=== PATIENT | female | born 1995 | race Caucasian/White ===

== ENCOUNTER 2023-05-08 15:48 | Outpatient (AMB) | payer OTHER, SELFPAY ==
[2023-05-08 15:54] VITALS: BP 110/58; PULSE 70; O2SAT 100; BMI 28.5
--- NOTE | 2023-05-08 15:54 | A.OFFVIS_ITS ---
Intake Vital Signs 05/08/23 15:54 Height 5 ft Weight 146 lb BMI 28.5 BP 110/58 L Blood Pressure Location Lt brachial Position Sitting Pulse 70 Pulse Source Pulse Oximeter Pulse Oximetry (%) 100 Oxygen Delivery Method Room Air Intake Visit Reasons: Asthma Geoscience Laboratory Technician Required: No Design Engineer Marine Equipment: Design Engineer Marine Equipment offered & declined Accompanied by: Self / Same As Patient Allergies No Known Allergies Allergy (Verified 05/08/23 15:57) Medication List - Last Reconciled 05/08/23 by Kathie Hendricks LPN fluticasone propionate 100 mcg/actuation (Flovent Diskus) 1 inh inhalation BID montelukast 10 mg PO DAILY HPI Asthma HPI Details Wilson is a very pleasant 27 year old female, never smoker, with underlying asthma. She was referred by her PCP for pulmonary evaluation. She reports symptoms are moderately controlled on Flovent, although does not use consistently. She infrequently uses albuterol. Her main symptom is a cough although does report intermittent dyspnea on exertion and feeling as though she can not take a deep breath which responds well to albuterol. She reports having childhood asthma and a family history of asthma.She denies any hospitalizations or intubations. She reports allergic symptoms associated with seasonal changes, denies any use of antihistamines. Denies any prior allergy testing. 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 [facility] Social History (Updated 05/08/23 @ 15:59 by Kathie Hendricks LPN) Patient Tobacco Use Status: Never used Tobacco Smoked in Last 30 Days: No Review of Systems Const Denies chills, Denies excessive sweating, Denies fever(s), Denies headache(s) and Denies night sweats Eyes Denies dry eyes, Denies irritation and Denies itchy eyes ENT Reports Normal hearing present, Denies headache(s), Denies nasal congestion, Denies post nasal drip and Denies sore throat Card Denies chest pain, Denies chest pain at rest, Denies chest pain with activity, Denies claudication, Denies leg edema, Denies dyspnea, Denies orthopnea and Denies paroxysmal nocturnal dyspnea Resp Denies chest congestion, Denies excessive phlegm production, Denies pain on insp iration, Denies pain with cough, Denies dyspnea, Denies stridor and Denies wheezing Musc Denies myalgias Neuro Reports Normal hearing present and Denies headache(s) Endo Denies excessive sweating Marc/Lymph Denies lymphadenopathy Aller/Immun Denies itchy eyes, Denies seasonal rhinorrhea and Denies wheezing Physical Exam Vital Signs: Last Vital Signs Pulse 70 05/08/23 15:54 BP 110/58 L 05/08/23 15:54 Pulse Ox 100 05/08/23 15:54 Oxygen Delivery Method Room Air 05/08/23 15:54 BMI result Body Mass Index 28.5 Const General: cooperative, healthy appearing, comfortable, no acute distress, well d eveloped and alert Orientation/consciousness: patient oriented x3 Limitations: no limitations HEENT Head: Yes normal to inspection, Yes normocephalic and Yes atraumatic Ears: hearing grossly normal bilaterally and external ears normal Eyes General: appearance normal, both eyes and all related structures Eyelids: Yes eyelids normal Sclerae: sclerae normal EOM: EOMs intact bilaterally Neck Neck: Yes normal visual inspection and Yes no lymphadenopathy Lymphatic: no lymphadenopathy noted Chest Chest palpation & inspection: normal inspection of the chest Resp Effort & Inspection: normal respiratory effort, able to speak in complete sentences, no audible wheezes, no cough, no stridor, not tachypneic, no tripod positioning and no use of accessory muscles Auscultation: clear to auscultation bilaterally Cardio Jugular venous distension: no JVD Rate: regular rate Rhythm: regular rhythm Skin Other: warm, dry General skin exam: no rashes or lesions noted Neuro General: patient oriented x3 Cranial nerves: Yes Normal hearing present Cognition (Neuro): normal cognition Gait exam (Neuro): Normal gait present Extrem General: Yes normal to inspection, Yes capillary refill normal, Yes no clubbing, cyanosis or edema and Yes no pedal edema Psych Appearance: grossly normal and well kempt Speech and movement: Normal speech and movement present and Clear speech present Affect: normal affect Attitude: cooperative Thought process: Normal thought process present Thought content: Normal thought content present Insight: Good insight present (Psych) Judgement: Good judgement present (Psych) Assessment & Plan Assessment & Plan (1) Asthma: Code(s): J45.909 - Unspecified asthma, uncomplicated (2) Environmental allergies: Code(s): Z91.09 - Other allergy status, other than to drugs and biological substances Plan Symptoms consistent with asthma and environmental allergies, will thoroughly assess with PFT and RAST testing. Encouraged patient to use Flovent regularly. Reviewed oral hygeine. Will follow up to review results and assess response to Flovent. All questions were answered and patient is in agreement of plan. Orders: Orders Rast Allergen Today Z. - Other allergy status, other than to drugs and biological substances Complete Blood Count Auto Diff Today Z. - Other allergy status, other than to drugs and biological substances Immunoglobulin E Today J45.909 - Unspecified asthma, uncomplicated, Z. - Other allergy status, other than to drugs and biological substances PFT pulmonary function test Today J45.909 - Unspecified asthma, uncomplicated Coding Level of Care Code New Pt Level 3 (45837) Diagnoses Asthma J45.909 Environmental allergies Z.
== END 2023-05-08 16:37 | disposition home or self-care (01) ==
LOC: HO.HPSW 15:48
PROVIDERS: PCP Physician Assistant Medical; Referring Provider Physician Assistant Medical; Visit Provider Nurse Practitioner Family
DX: J45.909 Unspecified asthma, uncomplicated (principal); Z91.09 Other allergy status, other than to drugs and biological substances
CPT/HCPCS: 99203

== ENCOUNTER 2023-06-14 10:38 | Outpatient (REF) | payer OTHER, SELFPAY ==
[2023-06-14 11:58] LABS: MANUAL DIFF FLAG NO
--- NOTE | 2023-06-14 12:18 | PFT_ITS ---
FLOWS: 1. FEV1 97% of predicted at 3.42 L. 2. FVC 99% of predicted at 3.74 L. 3. FEV1 to FVC ratio of 0.91. 4. No bronchodilator response. LUNG VOLUMES: 1. Total lung capacity 106% of predicted at 4.66 L. 2. Residual volume 88% of predicted at 0.86 L. 3. Slow vital capacity 104% of predicted at 3.80 L. 4. Expiratory reserve volume 58% of predicted at 0.62 L. 5. Diffusion capacity is normal. IMPRESSION: No obstructive or restrictive ventilatory defect. No bronchodilator response. Essentially normal pulmonary function test. MD MARYCARMEN Jerome/MODL / [id number]
[2023-06-14 12:48] LABS: Basophils Percent Auto 0.8 % (0-2); Eosinophils Absolute Auto 0.1 X10*3/uL (0.0-0.4); Eosinophils Percent Auto 2.5 % (0-4); Hematocrit 44.9 % (37.0-47.0); Hemoglobin 14.2 g/dl (12.0-16.0); Imm Gran Abs Auto 0.01 X10*3/uL (0.00-0.03); Imm Gran Pct Auto 0.3 % (0.0-0.4); Lymphocytes Absolute Auto 1.7 X10*3/uL (1.2-4.9); Lymphocytes Percent Auto 43.2 % (20-40); Mean Corpuscular HGB Conc 31.6 g/dl (31.0-35.0); Mean Corpuscular Hemoglobin 26.2 pg (27.0-33.0); Mean Platelet Volume 9.7 fL (9.4-12.3); Monocytes Absolute Auto 0.4 X10*3/uL (0.1-1.2); Monocytes Percent Auto 9.5 % (2-11); Neutrophils Absolute Auto 1.7 x10*3/uL (2.0-8.3); Neutrophils Percent Auto 43.7 % (45-73); Platelet Count 305 X10*3/uL (160-400); Red Blood Count 5.41 X10*6/uL (4.20-5.50); Red Cell Distribution Width 13.2 % (11.0-16.0)
[2023-06-18 20:54] LABS: Immunoglobulin E 101 kU/L (<OR=114)
== END 2023-06-14 10:39 | disposition home or self-care (01) ==
LOC: HO.RESP 10:38
PROVIDERS: PCP Physician Assistant Medical; Visit Provider Nurse Practitioner Family
DX: J45.909 Unspecified asthma, uncomplicated (principal); Z91.09 Other allergy status, other than to drugs and biological substances
CPT/HCPCS: 36415; 82785; 85025; 86003; 94010; 94727; 94729

== ENCOUNTER → 2023-06-14 12:18 | Outpatient (BNV) | payer OTHER, SELFPAY | PROVIDERS: PCP Physician Assistant Medical; Visit Provider Internal Medicine Pulmonary Disease | DX: J45.909 Unspecified asthma, uncomplicated (principal) | CPT/HCPCS: 94060; 94727; 94729 ==

== ENCOUNTER 2023-06-24 13:43 | Outpatient (AMB) | payer OTHER, SELFPAY ==
[2023-06-24 13:46] VITALS: BP 114/62; PULSE 69; O2SAT 100; BMI 29.5
--- NOTE | 2023-06-24 13:46 | MHC.OFFVIS ---
Intake Vital Signs 06/24/23 13:46 Height 5 ft Weight 151 lb BMI 29.5 BP 114/62 Blood Pressure Location Lt brachial Position Sitting Pulse 69 Pulse Source Pulse Oximeter Pulse Oximetry (%) 100 Oxygen Delivery Method Room Air Intake Visit Reasons: follow up after pft Personnel Manager Required: No Motor Vehicle Operator Road Supervisor: Motor Vehicle Operator Road Supervisor offered & declined Accompanied by: Self / Same As Patient Allergies No Known Allergies Allergy (Verified 06/24/23 13:53) Medication List - Last Reconciled 06/24/23 by Kathie Hendricks LPN fluticasone propionate 100 mcg/actuation (Flovent Diskus) 1 inh inhalation BID HPI follow up after pft HPI Details Wilson is a very pleasant 27 year old female, never smoker, with underlying asthma. At baseline she has suboptimal control on Flovent. Today she presents to review PFT and RAST results. Of note, she reports discontinuing singulair, prescribed by PCP, due to adverse effects. 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 [facility] Social History (Updated 05/08/23 @ 15:59 by Kathie Hendricks LPN) Patient Tobacco Use Status: Never used Tobacco Review of Systems Const Denies chills, Denies excessive sweating, Denies fever(s), Denies headache(s) and Denies night sweats Eyes Denies dry eyes, Denies irritation and Denies itchy eyes ENT Reports Normal hearing present, Denies headache(s), Denies nasal congestion, Denies post nasal drip and Denies sore throat Card Denies chest pain, Denies chest pain at rest, Denies chest pain with activity, Denies claudication, Denies leg edema, Denies dyspnea, Denies orthopnea and Denies paroxysmal nocturnal dyspnea Resp Denies chest congestion, Denies excessive phlegm production, Denies pain on inspiration, Denies pain with cough, Denies dyspnea, Denies stridor and Denies wheezing Musc Denies myalgias Neuro Reports Normal hearing present and Denies headache(s) Endo Denies excessive sweating Marc/Lymph Denies lymphadenopathy Aller/Immun Denies itchy eyes, Denies seasonal rhinorrhea and Denies wheezing Physical Exam Vital Signs: Last Vital Signs Pulse 69 06/24/23 13:46 BP 114/62 06/24/23 13:46 Pulse Ox 100 06/24/23 13:46 Oxygen Delivery Method Room Air 06/24/23 13:46 BMI result Body Mass Index 29.5 Const General: cooperative, healthy appearing, comfortable, no acute distress, well developed and alert Orientation/consciousness: patient oriented x3 Limitations: no limitations HEENT Head: Yes normal to inspection, Yes normocephalic and Yes atraumatic Ears: hearing grossly normal bilaterally and external ears normal Eyes General: appearance normal, both eyes and all related structures Eyelids: Yes eyelids normal Sclerae: sclerae normal EOM: EOMs intact bilaterally Neck Neck: Yes normal visual inspection and Yes no lymphadenopathy Lymphatic: no lymphadenopathy noted Chest Chest palpation & inspection: normal inspection of the chest Resp Effort & Inspection: normal respiratory effort, able to speak in complete sentences, no audible wheezes, no cough, no stridor, not tachypneic, no tripod positioning and no use of accessory muscles Auscultation: clear to auscultation bilaterally Cardio Jugular venous distension: no JVD Rate: regular rate Rhythm: regular rhythm Skin Other: warm, dry General skin exam: no rashes or lesions noted Neuro General: patient oriented x3 Cranial nerves: Yes Normal hearing present Cognition (Neuro): normal cognition Gait exam (Neuro): Normal gait present Extrem General: Yes normal to inspection, Yes capillary refill normal, Yes no clubbing, cyanosis or edema and Yes no pedal edema Psych Appearance: grossly normal and well kempt Speech and movement: Normal speech and movement present and Clear speech present Affect: normal affect Attitude: cooperative Thought process: Normal thought process present Thought content: Normal thought content present Insight: Good insight present (Psych) Judgement: Good judgement present (Psych) Assessment & Plan Assessment & Plan (1) Asthma: Code(s): J45.909 - Unspecified asthma, uncomplicated (2) Environmental allergies: Code(s): Z91.09 - Other allergy status, other than to drugs and biological substances Plan Reviewed PFT which revealed normal spirometry, lung volumes and DLCO, with minimal response to bronchodilators. Will trial Breo in place of Flovent and send in albuterol PRN chest tightness/wheezing. Discussed importance of oral hygiene. Patient aware if medication is not approved/available to contact the office. Reviewed RAST results which revealed allergies to mouse, cat and dog. Patient does have one cat and three dogs. Reviewed ways to minimize allergen exposure and to use an antihistamine. Will follow up in 3-6 months or sooner if needed. All questions were answered and patient is in agreement of plan. Medications: New fluticasone furoate-vilanterol 100-25 mcg/dose (Breo Ellipta) 1 inh inhalation DAILY 60 ea 3RF albuterol sulfate 90 mcg/actuation 2 puffs inhalation Q4-6H PRN 1 ea 3RF shortness of breath or wheezing Coding Level of Care Code Est Pt Level 3 (94019) Diagnoses Asthma J45.909 Environmental allergies Z91.09
== END 2023-06-24 14:16 | disposition home or self-care (01) ==
LOC: HO.HPSW 13:43
PROVIDERS: PCP Physician Assistant Medical; Visit Provider Nurse Practitioner Family
DX: J45.909 Unspecified asthma, uncomplicated (principal); Z91.09 Other allergy status, other than to drugs and biological substances
CPT/HCPCS: 99213

== ENCOUNTER → 2023-06-24 13:43 | Outpatient (BNVA) | payer OTHER, SELFPAY | PROVIDERS: PCP Physician Assistant Medical; Visit Provider Nurse Practitioner Family ==

== ENCOUNTER 2023-12-11 13:48 | Outpatient (AMB) | payer OTHER, SELFPAY ==
--- NOTE | 2023-12-11 13:53 | MHC.OFFVIS ---
Intake Vital Signs 12/11/23 14:01 Height 5 ft Weight 154 lb BMI 30.1 BP 132/64 Blood Pressure Location Lt brachial Position Sitting Pulse 72 Pulse Oximetry (%) 98 Oxygen Delivery Method Room Air Intake Visit Reasons: asthma : 6 month f/u Grades 9 Thru 12 Visiting Teacher Required: No Labor Service Representative: Labor Service Representative offered & declined Accompanied by: Self / Same As Patient Allergies No Known Allergies Allergy (Verified 12/11/23 14:06) Medication List - Last Reconciled 12/11/23 by Kathie Hendricks LPN albuterol sulfate 90 mcg/actuation 2 puffs inhalation Q4-6H PRN fluticasone furoate-vilanterol 100-25 mcg/dose (Breo Ellipta) 1 inh inhalation DAILY HPI asthma : 6 month f/u HPI Details Wilson is a very pleasant 28 year old female, never smoker, with underlying asthma. At the last visit she was switched from Flovent to Breo and reports good control of symptoms. She reports use of albuterol very infrequently. She denies any recent visits to urgent care/PCP for prednisone or antibiotics. She denies any wheezing, chest tightness, dry cough or dyspnea. Today she presents for a routine follow-up. [facility] Social History (Updated 12/11/23 @ 14:06 by Kathie Hendricks LPN) Patient Tobacco Use Status: Never used Tobacco Review of Systems Const Denies chills, Denies excessive sweating, Denies fever(s), Denies headache(s) and Denies night sweats Eyes Denies dry eyes, Denies irritation and Denies itchy eyes ENT Reports Normal hearing present, Denies headache(s), Denies nasal congestion, Denies nasal discharge, Denies post nasal drip and Denies sore throat Card Denies chest pain, Denies chest pain at rest, Denies chest pain with activity, Denies claudication, Denies leg edema, Denies dyspnea, Denies dyspnea on exertion, Denies orthopnea and Denies paroxysmal nocturnal dyspnea Resp Denies chest congestion, Denies cough, Denies excessive phlegm production, Denies pain on inspiration, Denies pain with cough, Denies dyspnea, Denies dyspnea on exertion, Denies stridor and Denies wheezing Musc Denies myalgias Neuro Reports Normal hearing present and Denies headache(s) Endo Denies excessive sweating Marc/Lymph Denies lymphadenopathy Aller/Immun Denies itchy eyes, Denies seasonal rhinorrhea and Denies wheezing Physical Exam Vital Signs: Last Vital Signs Pulse 72 12/11/23 14:01 BP 132/64 12/11/23 14:01 Pulse Ox 98 12/11/23 14:01 Oxygen Delivery Method Room Air 12/11/23 14:01 BMI result Body Mass Index 30.1 Const General: cooperative, healthy appearing, comfortable, no acute distress, well developed and alert Orientation/consciousness: patient oriented x3 Limitations: no limitations HEENT Head: Yes normal to inspection, Yes normocephalic and Yes atraumatic Ears: hearing grossly normal bilaterally and external ears normal Eyes General: appearance normal, both eyes and all related structures Eyelids: Yes eyelids normal Sclerae: sclerae normal EOM: EOMs intact bilaterally Neck Neck: Yes normal visual inspection and Yes no lymphadenopathy Lymphatic: no lymphadenopathy noted Chest Chest palpation & inspection: normal inspection of the chest Resp Effort & Inspection: normal respiratory effort, able to speak in complete sentences, no audible wheezes, no cough, no stridor, not tachypneic, no tripod positioning and no use of accessory muscles Auscultation: clear to auscultation bilaterally Cardio Jugular venous distension: no JVD Rate: regular rate Rhythm: regular rhythm Skin Other: warm, dry General skin exam: no rashes or lesions noted Neuro General: patient oriented x3 Cranial nerves: Yes Normal hearing present Cognition (Neuro): normal cognition Gait exam (Neuro): Normal gait present Extrem General: Yes normal to inspection, Yes capillary refill normal, Yes no clubbing, cyanosis or edema and Yes no pedal edema Psych Appearance: grossly normal and well kempt Speech and movement: Normal speech and movement present and Clear speech present Affect: normal affect Attitude: cooperative Thought process: Normal thought process present Thought content: Normal thought content present Insight: Good insight present (Psych) Judgement: Good judgement present (Psych) Assessment & Plan Assessment & Plan (1) Asthma: Code(s): J45.909 - Unspecified asthma, uncomplicated (2) Environmental allergies: Code(s): Z91.09 - Other allergy status, other than to drugs and biological substances Plan At this time patient reports good control of respiratory symptoms on current regimen. Advised to continue. She is aware to call the office if symptoms change. All questions were answered patient agreement of plan. Will follow-up in 6 months or sooner if needed. Coding Level of Care Code Est Pt Level 3 (42863) Diagnoses Asthma J45.909 Environmental allergies Z91.09
[2023-12-11 14:01] VITALS: BP 132/64; PULSE 72; O2SAT 98; BMI 30.1
== END 2023-12-11 14:20 | disposition home or self-care (01) ==
PROVIDERS: PCP Physician Assistant Medical; Visit Provider Nurse Practitioner Family
DX: J45.909 Unspecified asthma, uncomplicated (principal); Z91.09 Other allergy status, other than to drugs and biological substances
CPT/HCPCS: 99213

== ENCOUNTER → 2023-12-11 13:48 | Outpatient (BNVA) | payer OTHER, SELFPAY | PROVIDERS: PCP Physician Assistant Medical; Visit Provider Nurse Practitioner Family ==

== ENCOUNTER 2024-08-12 15:02 | Outpatient (AMB) | payer OTHER, SELFPAY ==
--- NOTE | 2024-08-12 15:06 | MHC.OFFVIS ---
Vital Signs 08/12/24 15:07 Height 5 ft Weight 153 lb 6 oz BMI 30.0 BP 94/58 L Blood Pressure Location Rt brachial Position Sitting Pulse 69 Pulse Source Pulse Oximeter Pulse Oximetry (%) 98 Oxygen Delivery Method Room Air Intake Visit Reasons: Asthma Allergies No Known Allergies Allergy (Verified 12/11/23 14:06) HPI HPI Asthma: Details: Wilson is a very pleasant 29 year old female, never smoker, with underlying asthma. She was initially referred for suboptimal control on Flovent and switch to Breo however reports inconsistent use. She reports intermittent and respiratory symptoms relatively controlled with albuterol p.r.n.. Since the last visit she did note having worsening respiratory symptoms after upper respiratory infection in June using albuterol quite frequently and received a course of azithromycin. Since then symptoms have been more controlled, however continues with dry cough. [facility] Social History (Reviewed 08/12/24 @ 15:09 by Angeles Frias [facility] [address]) Patient Tobacco Use Status: Never used Tobacco Review of Systems Const Denies chills, Denies excessive sweating, Denies fever(s), Denies headache(s) and Denies night sweats Eyes Denies dry eyes, Denies irritation and Denies itchy eyes ENT Reports Normal hearing present and Denies headache(s) Card Denies chest pain, Denies chest pain at rest, Denies chest pain with activity, Denies claudication, Denies leg edema, Denies dyspnea, Denies dyspnea on exertion, Denies orthopnea and Denies paroxysmal nocturnal dyspnea Resp Denies chest congestion, Reports cough, Denies excessive phlegm production, Denies pain on inspiration, Denies pain with cough, Denies dyspnea, Denies dyspnea on exertion, Denies stridor and Denies wheezing Musc Denies myalgias Neuro Reports Normal hearing present and Denies headache(s) Endo Denies excessive sweating Marc/Lymph Denies lymphadenopathy Aller/Immun Denies itchy eyes, Denies seasonal rhinorrhea and Denies wheezing Physical Exam Vital Signs: Last Vital Signs Pulse 69 08/12/24 15:07 BP 94/58 L 08/12/24 15:07 Pulse Ox 98 08/12/24 15:07 Oxygen Delivery Method Room Air 08/12/24 15:07 BMI result Body Mass Index 30.0 Const General: cooperative, healthy appearing, comfortable, no acute distress, well developed and alert Orientation/consciousness: patient oriented x3 Limitations: no limitations HEENT Head: Yes normal to inspection, Yes normocephalic and Yes atraumatic Ears: hearing grossly normal bilaterally and external ears normal Eyes General: appearance normal, both eyes and all related structures Eyelids: Yes eyelids normal Sclerae: sclerae normal EOM: EOMs intact bilaterally Neck Neck: Yes normal visual inspection and Yes no lymphadenopathy Lymphatic: no lymphadenopathy noted Chest Chest palpation & inspection: normal inspection of the chest Resp Effort & Inspection: normal respiratory effort, able to speak in complete sentences, no audible wheezes, no cough, no stridor, not tachypneic, no tripod positioning and no use of accessory muscles Auscultation: clear to auscultation bilaterally Cardio Jugular venous distension: no JVD Rate: regular rate Rhythm: regular rhythm Skin Other: warm, dry General skin exam: no rashes or lesions noted Neuro General: patient oriented x3 Cranial nerves: Yes Normal hearing present Cognition (Neuro): normal cognition Gait exam (Neuro): Normal gait present Extrem General: Yes normal to inspection, Yes capillary refill normal, Yes no clubbing, cyanosis or edema and Yes no pedal edema Psych Appearance: grossly normal and well kempt Speech and movement: Normal speech and movement present and Clear speech present Affect: normal affect Attitude: cooperative Thought process: Normal thought process present Thought content: Normal thought content present Insight: Good insight present (Psych) Judgement: Good judgement present (Psych) Assessment & Plan Assessment & Plan (1) Asthma: Code(s): J45.909 - Unspecified asthma, uncomplicated Category: Medical (2) Environmental allergies: Code(s): Z91.09 - Other allergy status, other than to drugs and biological substances Category: Medical Plan Encouraged patient to use Breo consistently and albuterol p.r.n.. All questions were answered and patient is in agreement of plan. Will follow-up in 6 months or sooner. Medications: Refilled fluticasone furoate-vilanterol 100-25 mcg/dose (Breo Ellipta) 1 inh inhalation DAILY 60 ea 6RF albuterol sulfate 90 mcg/actuation 2 puffs inhalation Q4-6H PRN 1 ea 3RF shortness of breath or wheezing Coding Level of Care Code Est Pt Level 3 (52224) Diagnoses Asthma J45.909 Environmental allergies Z91.09
[2024-08-12 15:07] VITALS: BP 94/58; PULSE 69; O2SAT 98
--- OUTSIDE RECORDS SUMMARY | 2024-08-13 02:58 | XMS_ITS | Data Portability ---
Author Organization [facility], Main Office Address [address] [place] [address] [place] [id number] Care Team Providers Care Farmworker Animal Name Role Phone MILAGROS CAO Primary Care Provider Assessment No assessment recorded. Plan of Treatment Reminders Order Date Submit Date Provider Last Modified By Organization Details Last Modified Time Details Appointments PE EST 2023 02:00P Sherrie Cao PA-C Not available Not available Not available Lab TSH, serum or plasma 2022 023 [facility], [address], [address], [place], [address], 05/21/2023 11:26:14 lipid panel, serum 2022 023 [facility], [address], [address], [place], [address], 05/21/2023 11:24:58 CMP, serum or plasma 2022 023 [facility], [address], [address], [place], [address], 05/21/2023 11:24:58 rapid flu (A+B) 2023 024 ania In-Office Order, Internal Use Only DO Not Attach Compendium DO Not Attach Compendium, Do Not Delete/merge, [id number] 06/13/2024 10:58:51 Referral pulmonol ogist referral - H/o asthma, pt. is going to the [employer] and needs exercise pulmonar y function testing done by pulmonol ogist 2022 023 [facility], [place], [address], 05/08/2023 19:54:22 gynecolo gist referral 2022 023 ale Not available 05/21/2023 12:21:01 Procedures None recorded . Surgeries None recorded . Imaging XR, cervical spine [address] [facility], [address] [place] [address], [id number], 09/09/2023 15:39:06 XR, thoracic spine, 2 view [address] [facility], [address] [place] [address], [id number], 09/09/2023 15:39:07 Medication Orders zolmitri ptan 5 mg disinteg rating tablet 2022 023 [facility] #1157, [address] [place], [address], 04/02/2023 14:26:28 monteluk ast 10 mg tablet 2022 023 [place] [address] [facility], [address] [place], [address], 07/06/2023 12:15:27 Flovent Diskus 100 mcg/actu ation powder for inhalati on 2022 023 [email or web address] [facility]acy #1157, [address] [place], [address], 06/12/2023 08:07:59 albutero l sulfate HFA 90 mcg/actu ation aerosol inhaler 2022 023 [facility] #1157, [address] [place], [address], 05/21/2023 11:27:49 monteluk ast 10 mg tablet 2022 023 [facility] #1157, [address] [place], [address], 07/06/2023 12:15:30 zolmitri ptan 5 mg disinteg rating tablet 2022 023 [facility] #1157, [address] [place], [address], 05/21/2023 11:27:49 meloxica m 15 mg tablet 2022 024 [facility] #1157, [address] [place], [address], 06/13/2024 10:20:02 cycloben zaprine 5 mg tablet 2022 024 [facility] #1157, [address] [place], [address], 06/13/2024 10:19:35 doxycycl ine hyclate 100 mg tablet 2022 024 [facility] #1157, [address] [place], [address], 06/13/2024 10:19:42 azithrom ycin 250 mg tablet 2023 024 [email or web address] [address] [place], [address], 06/13/2024 10:58:49 Patient TargetsNo targets recorded. Patient Instructions Encounter Date Encounter Id Patient Instructions Last Modified By Organization Details Last Modified Time 05/21/2023 [id number] heart-healthy diet: care instructions Not available 05/21/2023 11:24:55 diet and exercise for metabolic syndrome: care instructions Not available 05/21/2023 11:24:55 heart-healthy diet: care instructions Not available 05/21/2023 11:40:18 diet and exercise for metabolic syndrome: care instructions Not available 05/21/2023 11:40:18 controlling your asthma: care instructions Not available 05/21/2023 11:40:56 07/06/2023 [id number] neck: exercises Not availabl e 07/06/2023 12:26:24 healthy upper back: exercises Not available 07/06/2023 12:26:25 06/13/2024 [id number] pinkeye: care instructions awychowski Not available 06/13/2024 10:58:49 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 is going to the [employer] and needs exercise pulmonary function testing done by fibrous wallboard inspector Referring Physician: Milagros Cao, Internal Medicine, Encounter Date: 04/02/2023 Reimbursement Coordinator 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 Referring Physician: Milagros Cao, Internal Medicine, Encounter Date: 05/21/2023 Results Created Date Observation Date Name Description Value Unit Range Abnormal Flag Note LastModifiedBy Organization Detail LastModifiedTime 06/13/2006/13/2024 rapid flu (A+B) Flu A negati ve Not Available In-Office Order Internal Use Only DO Not Attach Compendium DO Not Attach Compendium, Do Not Delete/merge, [id number] 06/13/2024 10:33:19 06/13/2006/13/2024 rapid flu (A+B) Flu B negati ve Not Available In-Office Order Internal Use Only DO Not Attach Compendium DO Not Attach Compendium, Do Not Delete/merge, [id number] 06/13/2024 10:33:19 Result Notes None recorded. Problems Name Problem SNOMED Code Status Onset Date Resolution Date Notes Provider Name and Address Organization Details Recorded Time Acne 01356454 Active 2019 Not Available [facility] 3 10:52:13 Gastroeso phageal reflux disease 425579195 Completed 201907/26/2020 Milagros Cao PA-C [address] [facility] [address], [place], [address] , [facility] 0 11:35:23 Mild intermitt ent asthma 078779785 Active [address] [facility] 3 10:52:13 Migraine with aura 2237487 Active [address] [facility] 3 10:52:13 Family history of Thyroid disorder 596784473 Active [address] [facility] 3 10:52:13 Menorrhag ia 874898843 Active [address] [facility] 3 10:52:13 Anxiety 59974097 Active 2021 Not Available [facility] 3 10:52:13 Impacted cerumen of bilateral ears 11722132902 [address] Active [address] [facility] 3 10:52:13 Hyperlipi demia 53085449 Active [address] [facility] 3 10:52:13 Generaliz ed anxiety disorder 71271619 Active 2022 Milagros Cao PA-C [address] [facility] [address], [place], [address] , [facility] 3 11:23:22 Problem Notes None recorded. Procedures Surgical History Date Name Laterality Status Provider Name and Address Organization Details Recorded Time 02/08/2021 Other completed Stacy Prieto MA [facility] 01/12/2022 11:36:58 Imaging Results None recorded. Procedure Notes None recorded. Medical Equipment None Reported. Allergies No known drug allergies Medications Name Sig Start Date Stop Date Status Note LastModified by Organization Details LastModified Time azithromyci n 250 mg tablet TAKE 2 TABLETS BY MOUTH TODAY, THEN TAKE 1 TABLET DAILY FOR 4 DAYS DIRECTED active Not Available Not Available No t Available meloxicam 15 mg tablet TAKE 1 TABLET BY MOUTH EVERY DAY FOR 30 DAYS 06/13 completed Not Available Not Available Not Available zolmitripta n 5 mg disintegrat ing tablet Take 1 tablet as needed by oral route for 30 days. active Not Available Not Available No t Available triamcinolo ne acetonide 0.1 % topical cream APPLY A THIN LAYER TOPICALLY TO THE AFFECTED AREA TWICE A DAY 01/12 completed Not Available Not Available Not Available montelukast 10 mg tablet Take 1 tablet every day by oral route for 30 days. active Not Available Not Available No t Available albuterol sulfate HFA 90 mcg/actuati on aerosol inhaler Inhale 2 puffs every 4 hours by inhalatio n route for 30 days. active Not Available Not Available No t Available doxycycline hyclate 100 mg tablet TAKE 1 TABLET BY MOUTH TWICE A DAY FOR 10 DAYS 06/13 completed Not Available Not Available Not Available amoxicillin 875 mg-potassiu m clavulanate 125 mg tablet 07/25 completed Not Available Not Available Not Available cyclobenzap rine 5 mg tablet TAKE 1 TABLET BY MOUTH EVERY DAY NEEDED FOR 10 DAYS 06/13 completed Not Available Not Available Not Available Flovent Diskus 100 mcg/actuati on powder for inhalation INHALE 1 PUFF INTO THE LUNGS TWICE A DAY active Not Available Not Available No t Available Citlali (28) 3 mg-0.02 mg tablet TAKE ONE TABLET BY MOUTH EVERY MORNING 04/02 completed Not Available Not Available Not Available Asmanex HFA 200 mcg/actuati on aerosol inhaler INHALE 2 PUFFS BY MOUTH EVERY DAY 07/25 completed Not Available Not Available Not Available Asmanex HFA 100 mcg/actuati on aerosol inhaler INHALE 2 PUFFS TWICE A DAY 01/12 completed Not Available Not Available Not Available Vitals Date Recorded Body height Body mass index (BMI) Body weight Heart rate Oxygen saturation Oxygen saturation in Arterial blood by Pulse oximetry Body temperature Systolic blood pressure Diastolic blood pressure Provider Name and Address Organization Details Last Updated DateTime 3 152.4 cm 27.9 kg/m2 57149.7 1 g 80 /min 98 % 98 % 98.1 [degF] 120 mm[Hg] 78 mm[Hg] Hima Gongora MA [facility] 3 13:51:33 Date Recorded Body height Body mass index (BMI) Body weight Heart rate Oxygen saturation Oxygen saturation in Arterial blood by Pulse oximetry Body temperature Systolic blood pressure Diastolic blood pressure Provider Name and Address Organization Details Last Updated DateTime 3 152.4 cm 28.7 kg/m2 17074.0 8 g 67 /min 99 % 99 % 98.2 [degF] 114 mm[Hg] 69 mm[Hg] Jennifer Neumann [facility] 3 11:11:27 Date Recorded Body height Body mass index (BMI) Body weight Oxygen saturation Oxygen saturation in Arterial blood by Pulse oximetry Heart rate Body temperature Systolic blood pressure Diastolic blood pressure Provider Name and Address Organization Details Last Updated DateTime 3 152.4 cm 29.7 kg/m2 93326.4 4 g 100 % 100 % 76 /min 98.2 [degF] 126 mm[Hg] 72 mm[Hg] Kerline Montes De Oca MA [facility] 3 12:14:53 Date Recorded Body height Body mass index (BMI) Body weight Heart rate Oxygen saturation Oxygen saturation in Arterial blood by Pulse oximetry Body temperature Systolic blood pressure Diastolic blood pressure Provider Name and Address Organization Details Last Updated DateTime 3 152.4 cm 29.5 kg/m2 94216.4 5 g 62 /min 100 % 100 % 98.9 [degF] 120 mm[Hg] 81 mm[Hg] Mary Jo Ulloa LPN [facility] 3 11:04:21 Date Recorded Body height Body mass index (BMI) Body weight Heart rate Oxygen saturation Oxygen saturation in Arterial blood by Pulse oximetry Body temperature Systolic blood pressure Diastolic blood pressure Provider Name and Address Organization Details Last Updated DateTime 4 152.4 cm 29.2 kg/m2 43432.3 6 g 79 /min 99 % 99 % 98.6 [degF] 124 mm[Hg] 84 mm[Hg] Jennifer Neumann MA [facility] 4 10:20:16 Social History Question Answer Notes LastModified by Organizat ion Details LastModified Time Tobacco Smoking Status Never Smoker Dian nova [facility] 07/26/2020 11:08:26 What Is Your Level Of Alcohol Consumption? Occasional Information not available 07/26/2020 Is Blood Transfusion Acceptable In An Emergency? Yes Information not available 07/26/2020 What Is Your Level Of Caffeine Consumption? Occasional [email or web address] Information not available 01/12/2022 How Much Tobacco Do You Chew? None Information not available 07/26/2020 Are You Currently Employed? Yes Information not available 07/26/2020 What Type Of Diet Are You Following? REGULAR Information not available 07/26/2020 Do You Or Have You Ever Used E-cigarettes Or Vape? 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 With Others Partner And Mom [email or web address] Information not available 05/21/2023 Do You Take Precautions To Prevent Distracted Driving? Yes Information not available 07/26/2020 How Often Do You Need To Have Someone Help You When You Read Instructions, Pamphlets, Or Other Written Material From Your Doctor Or Pharmacy? Never Information not available 07/26/2020 Have You Or Anyone In Your Household Had Any Of The Following Symptoms In The Last 14 Days: Sore Throat, Cough, Chills, Body Aches For Unknown Reasons, Shortness Of Breath For Unknown Reasons, Loss Of Smell, Loss Of Taste, Fever At Or Greater Than 100 Degrees Fahrenheit? No Information not available 07/26/2020 Are You Or Anyone In Your Household A Health Care Provider Or Emergency Responder? 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 No Information not available 07/26/2020 What Was The Date Of Your Most Recent Tobacco Screening? 05/21/2023 [email or web address] Information not available 05/21/2023 How Many Children Do You Have? 0 [email or web address] Information not available 01/12/2022 Do You Use Protection During Sex? Always Information not available 07/26/2020 Do You Use Your Seat Belt Or Car Seat Routinely? Yes [email or web address] Information not available 01/12/2022 Seat Belts Used Routinely Yes [email or web address] Information not available 01/12/2022 Are You Sexually Active? Yes Information not available 07/26/2020 Smoke Alarm In Home Yes [email or web address] Information not available 01/12/2022 Do You Have Smoke And Carbon Monoxide Detectors In Your Home? Yes Information not available 01/12/2022 Are You Passively Exposed To Smoke? No Information not available 07/26/2020 Do You Or Have You Ever Used Smokeless Tobacco? Never Used Smokeless Tobacco Information not available 07/26/2020 How Much Tobacco Do You Smoke? No Information not available 07/26/2020 Do You Use Sunscreen Routinely? No Information not available 07/26/2020 Sex: Unknown Functional Status Question Answer Note LastModified by Organization D etails LastModified Time Are you able to walk? YESWOREST [email or web address] Information not available 05/21/2023 Are you able to care for yourself? Yes Information not available 07/26/2020 What is your exercise level? Moderate Information not available 01/12/2022 Mental Status None recorded. Family History Relationship Description Onset Age of this Age Resolved Age Notes LastModified by Organization Details LastModified Time Maternal Uncle Sleep disorder [email or web address] Not available 2019 11:08:10 Paternal Grandfather Sleep disorder [email or web address] Not available 2019 11:08:10 Mother Migraine [email or web address] Not available 07/26/2020 11:08:10 Mother Allergy [email or web address] Not available 1 09/25/2019 11:08:11 Paternal Grandmother Sleep disorder [email or web address] Not available 2019 11:08:11 Paternal Grandmother Arthritis kstober Not available 07/04 11:08:11 Father Hypercholest erolemia kstober Not available 2019 11:08:11 Father Asthma kstober Not available 11:08:11 Father Hypertensive disorder [email or web address] Not available 2021 11:36:46 Paternal Aunt Anxiety disorder kstober Not available 2019 11:08:11 Paternal Aunt Depressive disorder kstober Not available 2019 11:08:11 Maternal Grandfather Diabetes mellitus [email or web address] Not available 2019 11:08:11 Maternal Grandfather Kidney disease [email or web address] Not available 2019 11:08:11 Maternal Grandfather Obesity [email or web address] Not available 2019 11:08:11 Maternal Grandfather Sleep disorder kstober Not available 2019 11:08:11 Maternal Grandfather Liver problem kstober Not available 2019 11:08:11 Maternal Grandfather Chronic obstructive pulmonary disease kstober Not available 2019 11:08:11 Unspecified Relation Alzheimer's disease kstober Not available 2019 11:08:11 Paternal Uncle Sleep disorder kstober Not available 2019 11:08:11 Paternal Uncle Disorder of thyroid gland [email or web address] Not available 2021 11:36:46 Medical History Condition Response Headaches/Migraines Y Acne Y Asthma Y Gynecological HistoryNo gynecological history recorded. Obstetrics History GPAL:G 0 P 0 0 0 0 Immunizations Vaccine Type Date Status Note Provider Nam e and Address Organization Details Recorded Time Tdap 9 completed Birdie Ashley null, [facility] 05/21/2023 10:13:50 varicella 7 completed Birdie Ashley null, [facility] 05/21/2023 10:13:50 varicella 8 completed Birdie Ashley null, [facility] 05/21/2023 10:13:50 MMR 2 completed Birdie Ashley null, [facility] 05/21/2023 10:13:50 MMR 8 completed Birdie Ashley null, [facility] 05/21/2023 10:13:50 DTaP 1 completed Birdie Ashley null, [facility] 05/21/2023 10:13:51 DTaP 9 completed Birdie Ashley null, [facility] 05/21/2023 10:13:51 DTaP 8 completed Birdie Ashley null, [facility] 05/21/2023 10:13:51 DTaP 8 completed Birdie Ashley null, [facility] 05/21/2023 10:13:51 IPV 1 completed Birdie Ashley null, [facility] 05/21/2023 10:13:50 IPV 8 completed Birdie Ashley null, [facility] 05/21/2023 10:13:50 IPV 8 completed Birdie Ashley null, [facility] 05/21/2023 10:13:50 IPV 8 completed Birdie Ashley null, [facility] 05/21/2023 10:13:50 Hib (PRP-T) 9 completed Birdie Ashley null, [facility] 05/21/2023 10:13:51 Hib (PRP-T) 8 completed Birdie Ashley null, [facility] 05/21/2023 10:13:51 Hib (PRP-T) 8 completed Birdie Ashley null, [facility] 05/21/2023 10:13:51 Hib (PRP-T) 8 completed Birdie Ashley null, [facility] 05/21/2023 10:13:51 Hep B, adolescent or pediatric 8 completed Birdie Ashley null, [facility] 05/21/2023 10:13:51 Hep B, adolescent or pediatric 7 completed Birdie Ashley null, [facility] 05/21/2023 10:13:51 Hep B, adolescent or pediatric 7 completed Birdie Ashley null, [facility] 05/21/2023 10:13:51 COVID-19, mRNA, LNP-S, PF, 30 mcg/0.3 mL dose 1 completed Birdie Ashley null, [facility] 05/21/2023 10:13:50 HPV9 9 completed Birdie Ashley null, [facility] 05/21/2023 10:13:50 COVID-19, mRNA, LNP-S, PF, 30 mcg/0.3 mL dose 1 completed Birdie Ashley null, [facility] 05/21/2023 10:13:50 Hep A, ped/adol, 2 dose 1 completed Birdie Ashley null, [facility] 05/21/2023 10:13:51 HPV9 0 completed Birdie Ashley null, [facility] 05/21/2023 10:13:50 Td (adult), 2 Lf tetanus toxoid, preservative free, adsorbed 9 completed Birdie Ashley null, [facility] 05/21/2023 10:13:51 meningococcal MCV4P 7 completed Birdie Ashley null, [facility] 05/21/2023 10:13:51 HPV9 0 completed Birdie Ashley null, [facility] 05/21/2023 10:13:50 Influenza, split virus, trivalent, preservative 3 completed Birdie Ashley null, [facility] 05/21/2023 10:13:50 meningococcal MCV4P 8 completed Birdie Ashley null, [facility] 05/21/2023 10:13:51 DTaP 8 completed Birdie Ashley null, [facility] 05/21/2023 10:13:51 Influenza, split virus, trivalent, preservative 3 completed Birdie Ashley null, [facility] 05/21/2023 10:13:50 Hep A, ped/adol, 2 dose 0 completed Birdie Ashley null, [facility] 05/21/2023 10:13:51 meningococcal B, OMV 8 completed Birdie Ashley null, [facility] 05/21/2023 10:13:50 Tdap 8 completed Birdie Ashley null, [facility] 05/21/2023 10:13:50 Tdap 3 completed Birdie nova, [facility] 05/21/2023 10:13:50 Influenza, split virus, quadrivalent, PF 0 completed ZENON Pitt, [facility] 07/26/2020 11:54:16 Influenza, split virus, quadrivalent, PF 3 completed ZENON Adair, [facility] 05/21/2023 11:59:52 Past Encounters Encounter ID Performer Location Encounter Start Date Encounter Closed Date Diagnosis/Indication Diagnosis SNOMED-CT Code Diagnosis ICD10 Code [id number] Geneva Hernandezvedo Main Office [address] [facility] [address] [facility] [place] [id number] 07/26/2020 10:43:38 07/26/2020 11:57:41 Adult health examination 853281671 Z00.00 Screening for malignant neoplasm of cervix 470669058 Z12.4 Body mass index 30+ - obesity 637345051 Z68.35 Migraine with aura 90429 06 G43.109 Mild inter mittent asthma 758726820 J45.20 Needs infl uenza immunization 351227319 Z28.3 Weight gain 6617233 R63. 5 Fatigue 64012784 R53.83 Hyperlipidemia 97493565 E78.5 Obesity 028818881 E66.9 [id number] Milagros Cao PA-C Main Office [address] [facility] [address] [place] [id number] 11/04/2020 11:36:56 11/04/2020 12:27:47 Candidiasis of skin 44611142 B37.2 Mild inter mittent asthma 879450583 J45.20 Eruption 971037390 R21 [id number] Milagros Cao PA-C Main Office [address] [facility] [address] [place] [id number] 01/12/2022 11:35:07 01/12/2022 12:36:46 Adult health examination 844937634 Z00.00 Hyperlipidemia 34325805 E78.5 Family his tory of Thyroid disorder 840311981 Z83.49 Menorrhagia 451091714 N9 2.0 Migraine with aura 60616 06 G43.109 Impacted c erumen of bilateral ears 9983154482 076002 H61.23 Anxiety 69087146 F41.9 Mild inter mittent asthma 252043950 J45.20 [id number] Milagros Cao PA-C Main Office [address] [address] [place] [address] 04/02/2023 13:40:54 04/02/2023 14:37:30 Migraine with aura 6021634 G43.109 Mild inter mittent asthma 684196142 J45.20 [id number] Milagros Cao PA-C Main Office [address] [address] [place] [address] 05/21/2023 11:02:54 05/21/2023 11:50:43 Adult health examination 057061752 Z00.00 Needs infl uenza immunization 418315727 Z23 Generalize d anxiety disorder 25186801 F41.1 Screening for malignant neoplasm of cervix 975651143 Z12.4 Hyperlipidemia 67804337 E78.5 Family his tory of Thyroid disorder 666203128 Z83.49 Migraine with aura 99460 06 G43.109 Mild inter mittent asthma 649444714 J45.20 [id number] LAURENCE HIGH MD Main Office [address] [address] [place] [address] 07/06/2023 12:02:19 07/06/2023 12:32:14 Neck pain 49061591 M54.2 Thoracic back pain 13729 8004 M54.6 [id number] Milagros Cao PA-C Main Office [address] [address] [place] [address] 07/24/2023 10:43:43 07/24/2023 11:43:20 Abscess of skin and/or subcutaneous tissue 08167484 L02.91 Thoracic back pain 86167 8004 M54.6 [id number] Jhonny Watkins MD Main Office [address] [address] [place] [address] 06/13/2024 10:00:11 06/13/2024 10:56:43 Fever 479206371 R50.9 Acute conjunctivitis 537 96799 H10.30 Atypical pneumonia 02457 6009 J18.9 Health Concerns Section Related Observation LastModified by Organization Detai ls LastModified Time None Recorded Concern Status LastModified by Organization Details LastModified Time None Recorded Advance Directives Directive None Recorded Payers Encounter Date Sequence Insurance Name Policy Number Policy Palacios Covered Member ID Palacios Member ID Guarantor Name 04/02/2023 1 [facility] (PPO) [id number] Aime Condon [id number] Aemilia R Condon 05/21/2023 1 [facility] [employer] [facility] (PPO) [id number] Aime Condon [id number] Aemilia R Condon 07/06/2023 1 *SELF PAY* Ae milia R Condon 07/24/2023 1 *SELF PAY* Ae milia R Condon 06/13/2024 1 [facility] [id number] Aemilia R Condon [id number] Aemilia R Condon Notes Date Note Type Note Provider Name and Address Organization Details Recorded Time 04/02/2023 text/html 27 year old fema le for f/u on migraine headaches and intermittent asthma.Migraines are basically in remission. Pt. sees chiropractor now for her neck issues and has adjustment done and since then headaches went away. Pt. sees chiropractor monthly for her adjustments. Does not use zolmitriptan for a while. Milagros Cao PA-C [address], [address], [facility] 04/02/2023 14:35:06 05/21/2023 text/html Generic HPI TemplateReported bypatient.Notes:27 year old female for annual PE. 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 Periods are heavy once per month. Vaccines: original COVID vaccines, no booster. Pt. had flu vaccine in 2020.BMI is 28.7. Pt. lost 28 lbs since her physical in 2019 but regained 4 lbs.Mild CHRISTI. Score is 3, pt. sees therapist every other week. PHQ is 0.Migraine with aura. Very infrequent headaches since the last year. Pt. is on zolmitriptan PRN.Mild persistent asthma. Pt. is on Flovent BID, montelukast and rescue.NO prior MUSIC WRITER katelynn.BMI is 28.7. Reports regular exercise 3 days weekly. Diet: cut out milk and sugar. Milagros Cao PA-C [address] [address], [place], [address], [facility] 05/21/2023 11:43:04 07/06/2023 text/html Back PainReporte d bypatient.Location:alfonso n is radiating left arm Quality:aching and sharp Severity:worsening Duration:acute; intermittent Onset/Timing:first episode Context:unusual activity Alleviating Factors:relieved by changing position Aggravating Factors:movement/posit ioning Associated Symptoms:numbness in the left arm Wilson Condon is a 28 year old F who presented to the clinic complaining of upper back pain which worsened expectinally this morning. Pt was at the gym and lifting a 45lbs bar when she was putting it down pain started radiating down the thoracic spine and down her left arm. The numbness is intermittent and she feels it in her left fingertips and on the right side of the spine around T2-T3. Pt has been having back pain for the last few week with the right sided back numbness however the left arm numbness and severity of pain is new. Pt has seen a chiropractor for her chronic pain with little relief. Pt has not been taking any medication. LAURENCE HIGH MD [address] [address], [place], [phone], [facility] 07/06/2023 14:36:24 07/24/2023 text/html 28 y/o female pr esents for f/u of back pain that began 2 weeks ago after exercising at the gym. She shares that she lifted 45 lbs above her head when she suddenly felt a sharp pain in her upper back that radiated down her left arm. She has associated numbness and tingling. 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 The pain is better now but she continues to have residual numbness and tingling below her left scapula. She doesn't feel limited at work but feels like she needs to take more breaks. She does have relief with meloxicam and cyclobenzaprine that were prescribed last visit. She has been actively stretching, icing the affected area, and taking tylenol as needed. She has not gone for an x-ray since her insurance had lapsed at the time. Pt also has concerns of an abscess in her right inner thigh area. Started as a furuncle about a month ago , now larger tender and with drainage. DEnies fever, chills. 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 Developed conjunctivitis b/l over the past couple of days. Jhonny Watkins MD [address] [facility] [address], [place], [address], [facility] 06/13/2024 10:59:11 OBGyn Episode No OBEpisode recorded.
--- OUTSIDE RECORDS SUMMARY | 2024-08-13 02:58 | XMS_ITS | Continuity of Care Document ---
Author Organization [facility], Main Office Address [address] [place] [address] [place] [phone] Care Team Providers Care Audit Partner Name Role Phone MILAGROS CAO Primary Care Provider [phone] Assessment No assessment recorded. Plan of Treatment Reminders Order Date Submit Date Provider Last Modified By Organization Details Last Modified Time Details Appointments PE EST 2023 02:00P M Milagros Cao PA-C Not available Not available Not available Lab rapid flu (A+B) 2023 024 ania In-Office Order, Internal Use Only DO Not Attach Compendium DO Not Attach Compendium, Do Not Delete/merge, [id number] 06/13/2024 10:58:51 Referral None recorded . Procedures None recorded . Surgeries None recorded . Imaging None recorded . Medication Orders azithrom ycin 250 mg tablet 2023 024 ania [id number], [address] [place], [address], 06/13/2024 10:58:49 Patient TargetsNo targets recorded. Patient Instructions Encounter Date Encounter Id Patient Instructions Last Modified By Organization Details Last Modified Time 06/13/2024 [id number] savannah: care instructions ania Not available 06/13/2024 10:58:49 Reason for Referral None Reported. Results Created Date Observation Date Name Description Value Unit Range Abnormal Flag Note LastModifiedBy Organization Detail LastModifiedTime 06/13/2006/13/2024 rapid flu (A+B) Flu A negati ve Not Available In-Office Order Internal Use Only DO Not Attach Compendium DO Not Attach Compendium, Do Not Delete/merge, [id number] 06/13/2024 10:33:19 06/13/20 24 06/13/2024 rapid flu (A+B) Flu B negati ve Not Available In-Office Order Internal Use Only DO Not Attach Compendium DO Not Attach Compendium, Do Not Delete/merge, [id number] 06/13/2024 10:33:19 Result Notes None recorded. Problems Name Problem SNOMED Code Status Onset Date Resolution Date Notes Provider Name and Address Organization Details Recorded Time Acne 05319088 Active 2019 Not Available [facility] 3 10:52:13 Gastroeso phageal reflux disease 320624370 Completed 201907/26/2020 Milagros Cao PA-C [address] [facility] [address], [place], [address] , [facility] 0 11:35:23 Mild intermitt ent asthma 447272682 Active 2019 Not Available [facility] 3 10:52:13 Migraine with aura 0804140 Active 2019 Not Available [facility] 3 10:52:13 Family history of Thyroid disorder 162059600 Active 2021 Not Available [facility] 3 10:52:13 Menorrhag ia 970461561 Active 2021 Not Available [facility] 3 10:52:13 Anxiety 48444222 Active 2021 Not Available [facility] 3 10:52:13 Impacted cerumen of bilateral ears 13575446436 15062 Active 2021 Not Available [facility] 3 10:52:13 Hyperlipi demia 88885824 Active 2021 Not Available [facility] 3 10:52:13 Generaliz ed anxiety disorder 16859407 Active 2022 Milagros Cao PA-C [address] [facility] [address], [place], [address] , [facility] 3 11:23:22 Problem Notes None recorded. Procedures Surgical History Date Name Laterality Status Provider Name and Address Organization Details Recorded Time 02/08/2021 Other completed Stacy Prieto MA [facility] 01/12/2022 11:36:58 Imaging Results None recorded. [...] Updated DateTime 4 152.4 cm 29.2 kg/m2 79784.3 6 g 79 /min 99 % 99 % 98.6 [degF] 124 mm[Hg] 84 mm[Hg] Jennifer Partida [facility] 4 10:20:16 Social History Question Answer Notes LastModified by Organizat ion Details LastModified Time Tobacco Smoking Status Never Smoker Dian Cedeno avtar [facility] 07/26/2020 11:08:26 What Is Your Level Of Alcohol Consumption? Occasional Information not available 07/26/2020 Is Blood Transfusion Acceptable In An Emergency? Yes Information not available 07/26/2020 What Is Your Level Of Caffeine Consumption? Occasional [email or web address] Information not available 01/12/2022 How Much Tobacco Do You Chew? None Information not available 07/26/2020 Are You Currently Employed? Yes Information not available 07/26/2020 What Type Of Diet Are You Following? REGULAR Information not available 07/26/2020 Do You Or Have You Ever Used E-cigarettes Or Vape? 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 With Others Partner And Mom [email or web address] Information not available 05/21/2023 Do You Take [...] Of Your Most Recent Tobacco Screening? 05/21/2023 Information not available 05/21/2023 How Many Children Do You Have? 0 [email or web address] Information not available 01/12/2022 Do You Use Protection During Sex? Always Information not available 07/26/2020 Do You Use Your Seat Belt Or Car Seat Routinely? Yes [email or web address] Information not available 01/12/2022 Seat Belts Used Routinely Yes [email or web address] Information not available 01/12/2022 Are You Sexually Active? Yes Information not available 07/26/2020 Smoke Alarm In Home Yes [email or web address] Information not available 01/12/2022 Do You Have Smoke And Carbon Monoxide Detectors In Your Home? Yes [email or web address] Information not available 01/12/2022 Are You Passively [...] Time Are you able to walk? [email or web address] Information not available 05/21/2023 Are you able to care for yourself? Yes Information not available 07/26/2020 What is your exercise level? Moderate [email or web address] Information not available 01/12/2022 Mental Status None [...] [email or web address] Not available 11:08:11 Father Hypertensive disorder [email or web address] Not available 2021 11:36:46 Paternal Aunt Anxiety [...] 11:08:11 Paternal Uncle Disorder of thyroid gland [email or web address] Not available 2021 11:36:46 Medical History Condition Response Headaches/Migraines Y Acne Y Asthma Y Gynecological HistoryNo gynecological history recorded. Obstetrics History GPAL:G 0 P 0 0 0 0 Immunizations Vaccine Type Date Status Note Provider Nam e and Address Organization Details Recorded Time Tdap 9 completed Birdie Ashleyale nova [facility] 05/21/2023 10:13:50 varicella 7 completed Birdie Ashley null, [facility] 05/21/2023 10:13:50 varicella 8 completed Birdie Ashleyale nova [facility] 05/21/2023 10:13:50 MMR 2 completed Birdie Ashley null, [facility] 05/21/2023 10:13:50 MMR 8 completed Birdie Ashley null, [facility] 05/21/2023 10:13:50 DTaP 1 completed Birdie Ashley null, [facility] 05/21/2023 10:13:51 DTaP 9 completed Birdie Ashley null, [facility] 05/21/2023 10:13:51 DTaP 8 completed Birdie Ashley null, [facility] 05/21/2023 10:13:51 DTaP 8 completed Birdie Ashley null, [facility] 05/21/2023 10:13:51 IPV 1 completed Birdie Ashley null, [facility] 05/21/2023 10:13:50 IPV 8 completed Birdie Ashley null, [facility] 05/21/2023 10:13:50 IPV 8 completed Birdie Ashley null, [facility] 05/21/2023 10:13:50 IPV 8 completed Birdie Ashley null, [facility] 05/21/2023 10:13:50 Hib (PRP-T) 9 completed Birdie Ashley null, [facility] 05/21/2023 10:13:51 Hib (PRP-T) 8 completed Birdie Ashley null, [facility] 05/21/2023 10:13:51 Hib (PRP-T) 8 completed Birdie Ashley null, [facility] 05/21/2023 10:13:51 Hib (PRP-T) 8 completed Birdie Ashley null, [facility] 05/21/2023 10:13:51 Hep B, adolescent or pediatric 8 completed Birdie Ashley null, [facility] 05/21/2023 10:13:51 Hep B, adolescent or pediatric 7 completed Birdie Ashley null, [facility] 05/21/2023 10:13:51 Hep B, adolescent or pediatric 7 completed Birdie Ashley null, [facility] 05/21/2023 10:13:51 COVID-19, mRNA, LNP-S, PF, 30 mcg/0.3 mL dose 1 completed Birdie Ashley null, [facility] 05/21/2023 10:13:50 HPV9 9 completed Birdie Ashley null, [facility] 05/21/2023 10:13:50 COVID-19, mRNA, LNP-S, PF, 30 mcg/0.3 mL dose 1 completed Birdie Ashley null, [facility] 05/21/2023 10:13:50 Hep A, ped/adol, 2 dose 1 completed Birdie Ashley null, [facility] 05/21/2023 10:13:51 HPV9 0 completed Birdie Ashley null, [facility] 05/21/2023 10:13:50 Td (adult), 2 Lf tetanus toxoid, preservative free, adsorbed 9 completed Birdie Ashley null, [facility] 05/21/2023 10:13:51 meningococcal MCV4P 7 completed Birdie Ashley null, [facility] 05/21/2023 10:13:51 HPV9 0 completed Birdie Ashley null, [facility] 05/21/2023 10:13:50 Influenza, split virus, trivalent, preservative 3 completed Birdie Ashley null, [facility] 05/21/2023 10:13:50 meningococcal MCV4P 8 completed Birdie Ashley null, [facility] 05/21/2023 10:13:51 DTaP 8 completed Birdie Ashley null, [facility] 05/21/2023 10:13:51 Influenza, split virus, trivalent, preservative 3 completed Birdie Ashley null, [facility] 05/21/2023 10:13:50 Hep A, ped/adol, 2 dose 0 completed Birdie Ashley null, [facility] 05/21/2023 10:13:51 meningococcal B, OMV 8 completed Birdie Ashley null, [facility] 05/21/2023 10:13:50 Tdap 8 completed Birdie Ashley null, [facility] 05/21/2023 10:13:50 Tdap 3 completed Birdie Ashley null, [facility] 05/21/2023 10:13:50 Influenza, split virus, quadrivalent, PF 0 completed Jessica Ernandez MA null, [facility] 07/26/2020 11:54:16 Influenza, split virus, quadrivalent, PF 3 completed Lewis Moreno MA null, [facility] 05/21/2023 11:59:52 Past Encounters Encounter ID Performer Location Encounter Start Date Encounter Closed Date Diagnosis/Indication Diagnosis SNOMED-CT Code Diagnosis ICD10 Code [id number] Jhonny Watkins MD Main Office [address] [facility] [address] [place] [id number] 06/13/2024 10:00:11 06/13/2024 10:56:43 Fever 860352374 R50.9 Acute conjunctivitis 537 54831 H10.30 Atypical pneumonia 60267 6009 J18.9 Health Concerns Section Related Observation LastModified by Organization Erna [email or web address] LastModified Time None Recorded Concern Status LastModified by Organization Details LastModified Time None Recorded Payers Encounter Date Sequence Insurance Name Policy Number Policy Palacios Covered Member ID Palacios Member ID Guarantor Name 06/13/2024 1 [facility] [id number] Wilson Condon [id number] Wilson Condon Notes Date Note Type Note Provider Name and Address Organization Details Recorded Time 06/13/2024 text/html Upper Respirator y SymptomsReported bypatient.Location:a d; chest Quality:productive cough;sharp throat pain;colored phlegm;congested Severity:mild Duration:cannot identify; 06/07/2024 Context:non-smoker;sic k contact Associated Symptoms:no shortness of breath; no wheezing; no significant weight gain; no significant weight loss; no vomiting; no diarrhea; no rash; no nausea;fatigue;fever;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 Developed conjunctivitis b/l over the past couple of days. Jhonny Watkins MD [address] [address], [place], [address], [facility] 06/13/2024 10:59:11 OBGyn Episode No OBEpisode recorded.
== END 2024-08-12 15:33 | disposition home or self-care (01) ==
PROVIDERS: PCP Physician Assistant Medical; Visit Provider Nurse Practitioner Family
DX: J45.909 Unspecified asthma, uncomplicated (principal); Z91.09 Other allergy status, other than to drugs and biological substances
CPT/HCPCS: 99213

== ENCOUNTER 2024-11-13 15:16 | Outpatient (AMB) | payer OTHER, SELFPAY ==
--- NOTE | 2024-11-13 13:16 | A.OFFVIS_ITS ---
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 At baseline, has been well controlled on Breo. Today she presents for an acute visit. She reports progressively worsening cough with green sputum and increased dyspnea with minimal wheezing since October. She has been using albuterol MDI 1-2 times per day with good effect. 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 [facility] Social History Patient Tobacco Use Status: Never used Tobacco Review of Systems Const Denies chills, Denies excessive sweating, Denies headache(s) and Denies night sweats Eyes Denies dry eyes, Denies irritation and Denies itchy eyes ENT Reports Normal hearing present and Denies headache(s) Card Denies chest pain, Denies chest pain at rest, Denies chest pain with activity, Denies claudication, Denies leg edema, Denies dyspnea, Denies orthopnea and Denies paroxysmal nocturnal dyspnea Resp Denies excessive phlegm production, Denies pain on inspiration, Denies pain with cough, Denies dyspnea and Denies stridor Musc Denies myalgias Neuro Reports Normal hearing present and Denies headache(s) Endo Denies excessive sweating Marc/Lymph Denies lymphadenopathy Aller/Immun Denies itchy eyes and Denies seasonal rhinorrhea Physical Exam Vital Signs: BMI result Body Mass Index 29.9 Const General: cooperative, healthy appearing, comfortable, no acute distress, well developed and alert Orientation/consciousness: patient oriented x3 Limitations: no limitations HEENT Head: Yes normal to inspection, Yes normocephalic and Yes atraumatic Ears: hearing grossly normal bilaterally and external ears normal Eyes General: appearance normal, both eyes and all related structures Eyelids: Yes eyelids normal Sclerae: sclerae normal EOM: EOMs intact bilaterally Neck Neck: Yes normal visual inspection and Yes no lymphadenopathy Lymphatic: no lymphadenopathy noted Chest Chest palpation & inspection: normal inspection of the chest Resp Effort & Inspection: normal respiratory effort, able to speak in complete sente nces, no audible wheezes, Actively coughing Quality: dry, no stridor, not tachypneic, no tripod positioning and no use of accessory muscles Auscultation: clear to auscultation bilaterally Cardio Jugular venous distension: no JVD Rate: regular rate Rhythm: regular rhythm Skin Other: warm, dry General skin exam: no rashes or lesions noted Neuro General: patient oriented x3 Cranial nerves: Yes Normal hearing present Cognition (Neuro): normal cognition Gait exam (Neuro): Normal gait present Extrem General: Yes normal to inspection, Yes capillary refill normal, Yes no clubbing, cyanosis or edema and Yes no pedal edema Psych Appearance: grossly normal and well kempt Speech and movement: Normal speech and movement present and Clear speech present Affect: normal affect Attitude: cooperative Thought process: Normal thought process present Thought content: Normal thought content present Insight: Good insight present (Psych) Judgement: Good judgement present (Psych) Assessment & Plan Assessment & Plan (1) Asthma: Code(s): J45.909 - Unspecified asthma, uncomplicated Category: Medical (2) Environmental allergies: Code(s): Z91.09 - Other allergy status, other than to drugs and biological substances Category: Medical Plan Will treat bronchitic symptoms with a zpak. Will hold off on prednisone as no wheezing appreciated. Encouraged patient to use Breo and albuterol p.r.n.. All questions were answered and patient is in agreement of plan. Will follow-up for regularly scheduled appointment or sooner. Medications: New azithromycin For 250 mg dose pack: take 500 mg today (day 1), then 250 mg for 4 days (days 2-5) PO 6 tabs 0RF Coding Level of Care Code Est Pt Level 4 (80672) Diagnoses Asthma J45.909 Environmental allergies Z91.09
[2024-11-13 15:21] VITALS: BP 132/64; PULSE 73; O2SAT 100; BMI 29.9
--- OUTSIDE RECORDS SUMMARY | 2024-11-13 16:32 | XMS_ITS | Data Portability ---
Author Organization [facility], Main Office Address [address] [place] [address] [place] [phone] Care Team Providers Care Public Defender Name Role Phone MILAGROS CAO Primary Care Provider Assessment No assessment recorded. Plan of Treatment Reminders Order Date Submit Date Provider Last Modified By Organization Details Last Modified Time Details Appointments None recorded. Lab TSH, ultra-sen sitive, serum 2023 [facility] (Centralized Electronic Ordering - All Locations), Patient Can Go To The Location Of Their Choice, [id number] 14:34:57 lipid panel, serum 2023 [facility] (Centralized Electronic Ordering - All Locations), Patient Can Go To The Location Of Their Choice, [id number] 14:34:57 CMP, serum or plasma 2023 [facility] (Centralized Electronic Ordering - All Locations), Patient Can Go To The Location Of Their Choice, [id number] 4 14:34:57 CBC w/ auto diff 2023 [facility] (Centralized Electronic Ordering - All Locations), Patient Can Go To The Location Of Their Choice, [id number] 4 14:34:57 rapid flu (A+B) 2023 ania In-Office Order, Internal Use Only DO Not Attach Compendium DO Not Attach Compendium, Do Not Delete/merge, [id number] 4 10:58:51 TSH, serum or plasma 2022 023 [facility], [address], [address], [place], [address], 3 11:26:14 lipid panel, serum 2022 023 [facility], [address], [address], [place], [address], 3 11:24:58 CMP, serum or plasma 2022 023 [facility], [address], [address], [place], [address], 3 11:24:58 Referral gynecolog ist referral 2023 024 Not available 4 14:58:40 gynecolog ist referral 2022 023 [email or web address] Not available 3 12:21:01 Procedures None recorded. Surgeries None recorded. Imaging XR, cervical spine 2022 023 [email or web address] [facility], [address] [place] [address], [address], 4 15:39:06 XR, thoracic spine, 2 view 2022 023 [email or web address] [facility], [address] [place] [address], [address], 4 15:39:07 Medication Orders sertralin e 50 mg tablet 2023 024 [facility], [address] [place], [address], 4 14:34:57 azithromy arie 250 mg tablet 2023 024 [facility], [address] [place], [address], 4 14:03:38 doxycycli ne hyclate 100 mg tablet 2022 024 [facility], [address] [place], [address], 4 10:19:42 meloxicam 15 mg tablet 2022 024 [facility], [address] [place], [address], 4 10:20:02 cyclobenz aprine 5 mg tablet 2022 024 [facility], [address] [place], [address], 4 10:19:35 albuterol sulfate HFA 90 mcg/actua tion aerosol inhaler 2022 023 [facility], [address] [place], [address], 3 11:27:[address] 10 mg tablet 2022 023 [facility], [address] [place], [address], 3 12:15:30 zolmitrip liang 5 mg disintegr ating tablet 2022 023 [facility], [address] [place], [address], 3 11:27:49 Patient TargetsNo targets recorded. Patient Instructions Encounter Date Encounter Id Patient Instructions Last Modified By Organization Details Last Modified Time 05/21/2023 [id number] heart-healthy diet: care instructions Not available 05/21/2023 11:24:55 diet and exercise for metabolic syndrome: care instructions Not available 05/21/2023 11:24:55 heart-healthy diet: care instructions Not available 05/21/2023 11:40:18 diet and exercise for metabolic syndrome: care instructions Not available 05/21/2023 11:40:18 controlling your asthma: care instructions Not available 05/21/2023 11:40:56 07/06/2023 [id number] neck: exercises Not availabl e 07/06/2023 12:26:24 healthy upper back: exercises Not available 07/06/2023 12:26:25 06/13/2024 [id number] pinkeye: care instructions [email or web address] Not available 06/13/2024 10:58:49 08/18/2024 [id number] high cholesterol: care instructions Not available 08/18/2024 14:34:57 heavy menstrual periods: care instructions Not available 08/18/2024 14:34:57 When You Want to Lose Weight: Care Instructions Not available 08/18/2024 14:34:57 migraine aura without a headache: care instructions Not available 08/18/2024 14:34:57 Reason for Referral Strip Machine Tender 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 Referring Physician: Milagros Cao, Internal Medicine, Encounter Date: 05/21/2023 Strip Machine Tender 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 Referring Physician: Milagros Cao Internal Medicine, Encounter Date: 08/18/2024 Results Created Date Observation Date Name Description Value Unit Range Abnormal Flag Note LastModifiedBy Organization Detail LastModifiedTime 06/13/2006/13/2024 rapid flu (A+B) Flu A negati ve Not Available In-Office Order Internal Use Only DO Not Attach Compendium DO Not Attach Compendium, Do Not Delete/merge, [id number] 06/13/2024 10:33:19 06/13/2006/13/2024 rapid flu (A+B) Flu B negati ve Not Available In-Office Order Internal Use Only DO Not Attach Compendium DO Not Attach Compendium, Do Not Delete/merge, [id number] 06/13/2024 10:33:19 Result Notes None recorded. Problems Name Problem SNOMED Code Status Onset Date Resolution Date Notes Provider Name and Address Organization Details Recorded Time Acne 44943953 Active 2019 Not Available [facility] 3 10:52:13 Gastroesop hageal reflux disease 238601801 Completed 201907/26/2020 Milagros Cao PA-C [address], [place], [address] , [facility] 0 11:35:23 Mild intermitte nt asthma 890419560 Active 2019 Not Available [facility] 3 10:52:13 Migraine with aura 9430614 Active 2019 Not Available [facility] 3 10:52:13 Family history of Thyroid disorder 514289527 Active 2021 Not Available [facility] 3 10:52:13 Menorrhagi a 722146259 Active 2021 Not Available [facility] 3 10:52:13 Hyperlipid emia 40859016 Active 2021 Not Available [facility] 3 10:52:13 Generalize d anxiety disorder 68307396 Active 2022 Milagros Cao PA-C [address], [place], [address] , [facility] 3 11:23:22 Body mass index 25-29 - overweight 570297151 Active 2023 Milagros Cao PA-C [address] [facility] [address], [place], [address] , [facility] 4 14:34:02 Problem Notes None recorded. Procedures Surgical History Date Name Laterality Status Provider Name and Address Organization Details Recorded Time 02/08/2021 Other completed Stacy Prieto MA [facility] 01/12/2022 11:36:58 Imaging Results None recorded. Procedure Notes None recorded. Medical Equipment None Reported. Allergies No known drug allergies Medications Name Sig Start Date Stop Date Status Note LastModified by Organization Details LastModified Time azithromyci n 250 mg tablet TAKE 2 TABLETS BY MOUTH TODAY, THEN TAKE 1 TABLET DAILY FOR 4 DAYS DIRECTED 08/18 completed Not Available Not Available Not Available meloxicam 15 mg tablet TAKE 1 [...] Not Available Not Available No t Available sertraline 50 mg tablet Take 1 tablet every day by oral route for 90 days. active Not Available Not Available No [...] PUFF INTO THE LUNGS TWICE A DAY 08/18 completed Not Available Not Available Not Available Breo Ellipta 100 mcg-25 mcg/dose powder for inhalation active Not Available Not Available N ot Available Citlali (28) 3 mg-0.02 mg tablet [...] Updated DateTime 3 152.4 cm 28.7 kg/m2 16232.0 8 g 67 /min 99 % 99 % 98.2 [degF] 114 mm[Hg] 69 mm[Hg] Jennifer Neumann MA [facility] 3 11:11:27 Date Recorded Body height Body mass index (BMI) Body weight Oxygen saturation Oxygen saturation in Arterial blood by Pulse oximetry Heart rate Body temperature Systolic blood pressure Diastolic blood pressure Provider Name and Address Organization Details Last Updated DateTime 3 152.4 cm 29.7 kg/m2 48287.4 4 g 100 % 100 % 76 /min 98.2 [degF] 126 mm[Hg] 72 mm[Hg] Kerline Montes De Oca MA [facility] 3 12:14:53 Date Recorded Body height Body mass index (BMI) Body weight Heart rate Oxygen saturation Oxygen saturation in Arterial blood by Pulse oximetry Body temperature Systolic blood pressure Diastolic blood pressure Provider Name and Address Organization Details Last Updated DateTime 3 152.4 cm 29.5 kg/m2 40257.4 5 g 62 /min 100 % 100 % 98.9 [degF] 120 mm[Hg] 81 mm[Hg] Mary Jo Ulloa LPN [facility] 3 11:04:21 Date Recorded Body height Body mass index (BMI) Body weight Heart rate Oxygen saturation Oxygen saturation in Arterial blood by Pulse oximetry Body temperature Systolic blood pressure Diastolic blood pressure Provider Name and Address Organization Details Last Updated DateTime 4 152.4 cm 29.2 kg/m2 83384.3 6 g 79 /min 99 % 99 % 98.6 [degF] 124 mm[Hg] 84 mm[Hg] Jennifer Neumann [facility] 4 10:20:16 Date Recorded Body height Body mass index (BMI) Body weight Heart rate Oxygen saturation Oxygen saturation in Arterial blood by Pulse oximetry Body temperature Systolic blood pressure Diastolic blood pressure Provider Name and Address Organization Details Last Updated DateTime 4 152.4 cm 29.3 kg/m2 08058.8 6 g 73 /min 96 % 96 % 97.6 [degF] 112 mm[Hg] 75 mm[Hg] Amandeep coombs [facility] 4 14:03:09 Social History Question Answer Notes LastModified by Organizat ion Details LastModified Time Tobacco Smoking Status Never Smoker Dian nova [facility] 07/26/2020 11:08:26 What Is Your Level Of Alcohol Consumption? Occasional Information not available 07/26/2020 Is Blood Transfusion Acceptable In An Emergency? Yes Information not available 07/26/2020 What Is Your Level Of Caffeine Consumption? Occasional [email or web address] Information not available 01/12/2022 How Much Tobacco Do You Chew? None Information not available 07/26/2020 Are You Currently Employed? Yes Information not available 07/26/2020 What Type Of Diet Are You Following? REGULAR Information not available 07/26/2020 Do You Or Have You Ever Used E-cigarettes Or Vape? 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 With Others Partner And Mom Information not available 05/21/2023 Do You Take [...] Date Of Your Most Recent Tobacco Screening? 08/18/2024 [email or web address] Information not available 08/18/2024 How Many Children Do You Have? 0 [email or web address] Information not available 01/12/2022 Do You Use Protection During Sex? Always Information not available 07/26/2020 Do You Use Your Seat Belt Or Car Seat Routinely? Yes Information not available 01/12/2022 Seat Belts Used Routinely Yes [email or web address] Information not available 01/12/2022 Are You Sexually Active? Yes Information not available 07/26/2020 Smoke Alarm In Home Yes Information not available 01/12/2022 Do You Have [...] 07/26/2020 11:08:10 Mother Allergy [email or web address] Not available 09/25/2019 11:08:11 Paternal Grandmother Sleep disorder [email or web address] Not available 2019 11:08:11 Paternal Grandmother Arthritis kstober Not available 07/04 11:08:11 Father Hypercholest erolemia kstober Not available 2019 11:08:11 Father Asthma kstober Not available 11:08:11 Father Hypertensive disorder [email or web address] Not available 2021 11:36:46 Paternal Aunt Anxiety [...] pulmonary disease kstober Not available 2019 11:08:11 Maternal Grandfather Malignant melanoma 76 [email or web address] Not available 14:05:11 Unspecified Relation Alzheimer's disease [email or web address] Not available 2019 11:08:11 Paternal Uncle Sleep disorder [email or web address] Not available 2019 11:08:11 Paternal Uncle Disorder of thyroid gland [email or web address] Not available 2021 11:36:46 Medical History Condition Response Headaches/Migraines Y Asthma Y Acne Y Gynecological HistoryNo gynecological history recorded. Obstetrics History GPAL:G 0 P 0 0 0 0 Immunizations Vaccine Type Date Status Note Provider Nam e and Address Organization Details Recorded Time Tdap 9 completed Birdie Ashley null, [facility] 05/21/2023 10:13:50 varicella 7 completed Birdie Ashley null, [facility] 05/21/2023 10:13:50 varicella 8 completed Birdie Ashley null, [facility] 05/21/2023 10:13:50 MMR 2 completed Birdie Ashley null, [facility] 05/21/2023 10:13:50 MMR 8 completed Birdie Ashley null, [facility] 05/21/2023 10:13:50 DTaP 1 completed Birdie Ashley null, [facility] 05/21/2023 10:13:51 DTaP 9 completed Birdie Ashley null, [facility] 05/21/2023 10:13:51 DTaP 8 completed Birdie Ashley null, [facility] 05/21/2023 10:13:51 DTaP 8 completed Birdie Ashley null, [facility] 05/21/2023 10:13:51 IPV 1 completed Birdie Ashley null, [facility] 05/21/2023 10:13:50 IPV 8 completed Birdie Ashley null, [facility] 05/21/2023 10:13:50 IPV 8 completed Birdie Ashley null, [facility] 05/21/2023 10:13:50 IPV 8 completed Birdie Ashley null, [facility] 05/21/2023 10:13:50 Hib (PRP-T) 9 completed Birdie Ashley null, [facility] 05/21/2023 10:13:51 Hib (PRP-T) 8 completed Birdie Ashley null, [facility] 05/21/2023 10:13:51 Hib (PRP-T) 8 completed Birdie Ashley null, [facility] 05/21/2023 10:13:51 Hib (PRP-T) 8 completed Birdie Ashley null, [facility] 05/21/2023 10:13:51 Hep B, adolescent or pediatric 8 completed Birdie Ashley null, [facility] 05/21/2023 10:13:51 Hep B, adolescent or pediatric 7 completed Birdie Ashley null, [facility] 05/21/2023 10:13:51 Hep B, adolescent or pediatric 7 completed Birdie Ashley null, [facility] 05/21/2023 10:13:51 COVID-19, mRNA, LNP-S, PF, 30 mcg/0.3 mL dose 1 completed Birdie Ashley null, [facility] 05/21/2023 10:13:50 HPV9 9 completed Birdie Ashley null, [facility] 05/21/2023 10:13:50 COVID-19, mRNA, LNP-S, PF, 30 mcg/0.3 mL dose 1 completed Birdie Ashley null, [facility] 05/21/2023 10:13:50 Hep A, ped/adol, 2 dose 1 completed Birdie Ashley null, [facility] 05/21/2023 10:13:51 HPV9 0 completed Birdie Ashley null, [facility] 05/21/2023 10:13:50 Td (adult), 2 Lf tetanus toxoid, preservative free, adsorbed 9 completed Birdie Ashley null, [facility] 05/21/2023 10:13:51 meningococcal MCV4P 7 completed Birdie Ashley null, [facility] 05/21/2023 10:13:51 HPV9 0 completed Birdie Ashley null, [facility] 05/21/2023 10:13:50 Influenza, split virus, trivalent, preservative 3 completed Birdie Ashley null, [facility] 05/21/2023 10:13:50 meningococcal MCV4P 8 completed Birdie Ashley null, [facility] 05/21/2023 10:13:51 DTaP 8 completed Birdie Ashley null, [facility] 05/21/2023 10:13:51 Influenza, split virus, trivalent, preservative 3 completed Birdieale Ashley null, [facility] 05/21/2023 10:13:50 Hep A, ped/adol, 2 dose 0 completed Birdie Ashley null, [facility] 05/21/2023 10:13:51 meningococcal B, OMV 8 completed Birdie Ashley null, [facility] 05/21/2023 10:13:50 Tdap 8 completed Birdie Ashley null, [facility] 05/21/2023 10:13:50 Tdap 3 completed Birdie Ashley null, [facility] 05/21/2023 10:13:50 Influenza, split virus, quadrivalent, PF 0 completed Jessica Ernandez MA null, [facility] 07/26/2020 11:54:16 Influenza, split virus, quadrivalent, PF 3 completed Lewis Moreno MA null, [facility] 05/21/2023 11:59:52 Influenza, split virus, trivalent, PF 4 completed Milagros Cao PA-C [address], [address], [facility] 08/18/2024 14:34:58 Past Encounters Encounter ID Performer Location Encounter Start Date Encounter Closed Date Diagnosis/Indication Diagnosis SNOMED-CT Code Diagnosis ICD10 Code Diagnosis Note [id number] [place] Esquivel Main Office [address] [facility] [address] [place] [address] 07/26/2020 10:43:38 07/26/2020 11:57:41 Adult health examination 623916114 Z00.00 Screening for malignant neoplasm of cervix 611388713 Z12.4 Body mass index 30+ - obesity 736918655 Z68.35 Migraine with aura 95341 06 G43.109 Mild inter mittent asthma 571661197 J45.20 Needs infl uenza immunization 047799765 Z28.3 Weight gain 3140002 R63. 5 r/o thyroid dysfunctio n Fatigue 83041114 R53.83 Hyperlipidemia 68150985 E78.5 Obesity 246875766 E66.9 [id number] Milagros Cao PA-C Main Office [address] [place] [address] 11/04/2020 11:36:56 11/04/2020 12:27:47 Candidiasis of skin 31508445 B37.2 foot mateus. WE will needs to use nystatin cream daily. Mild inter mittent asthma 030691519 J45.20 Start asmanex and montelukas t. F/u in 1 month if needed. Eruption 924368497 R21 non pruritic elbow eruption of unclear etiology. [id number] Milagros Cao PA-C Main Office [address] [place] [address] 01/12/2022 11:35:07 01/12/2022 12:36:46 Adult health examination 178702030 Z00.00 recommend COVID booster. Hyperlipidemia 81358790 E78.5 Family his tory of Thyroid disorder 431332143 Z83.49 Menorrhagia 057302353 N9 2.0 Migraine with aura 25689 06 G43.109 restart rescue meds and keep migraine diary for 6 weeks. F/u to see if preventati ve topamax needs to be restarted. Impacted c erumen of bilateral ears 5570419612 928999 H61.23 disimpacte d with irrigation with hydrogen peroxide and warm water Anxiety 58422886 F41.9 continue therapy. Mild inter mittent asthma 484196493 J45.20 Start Flovent Diskus BID , singulair daily . [id number] Milagros Cao PA-C Main Office [address] [place] [address] 04/02/2023 13:40:54 04/02/2023 14:37:30 Migraine with aura 0439086 G43.109 restart rescue meds and keep migraine diary for 6 weeks. F/u to see if preventati ve topamax needs to be restarted. Mild inter mittent asthma 106022633 J45.20 Stable on meds. [id number] Milagros Cao PA-C Main Office [address] [facility] [address] [place] [address] 05/21/2023 11:02:54 05/21/2023 11:50:43 Adult health examination 235362706 Z00.00 recommend COVID booster and flu vaccine. Needs infl uenza immunization 433916470 Z23 Generalize d anxiety disorder 95650348 F41.1 mild , respond to therapy. Screening for malignant neoplasm of cervix 354864150 Z12.4 Hyperlipidemia 30721414 E78.5 repeat fasting lipids,con tinue low fat diet and weight loss. Family his tory of Thyroid disorder 702867793 Z83.49 repeat TSH. Migraine with aura 53152 06 G43.109 doing very well, very occasional migraine. Continue zolmitript an prn. Mild inter mittent asthma 322599333 J45.20 Stable on meds. 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 [address] [place] [address] 07/24/2023 10:43:43 07/24/2023 11:43:20 Abscess of skin and/or subcutaneous tissue 15999224 L02.91 begin antibiotic as directed for 10 days, topical abs as well, change dressing daily. F/u after 7-10 days of treatment if still open or draining. Thoracic back pain 66038 8004 M54.6 pt. is advised to have xray done , continue meloxicam 15 mg daily for another 1-2 weeks. Back stretching . [id number] Jhonny Watkins MD Main Office [address] [facility] [address] [place] [address] 06/13/2024 10:00:11 06/13/2024 10:56:43 Fever 807667815 R50.9 Flu and COVID testing negative, making her symptoms more suspicious for atypical respirator y pathogen. WIll cover with azithro. Acute conjunctivitis 537 63691 H10.30 Raises concern for either secondary bacterial infection or atypical respirator y pathogen. Will cover with azithro and reassess if symptoms persist/wo rsen. Atypical pneumonia 61814 6009 J18.9 [id number] Milagros Cao PA-C Main Office [address] [address] 08/18/2024 13:49:13 08/18/2024 14:36:13 Adult health examination 030379105 Z00.00 Flu vaccine updated. Covid booster advised. COURSEWARE DEVELOPER referral was provided. Generalize d anxiety disorder 91238061 F41.1 CHRISTI score is 16 with biweekly psychother apy. 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 There also might be features of ADD. recommend trial of SSRI, sertraline 50 mg to address both anxiety and possible ADD. F/u 6 weeks. Family his tory of Thyroid disorder 251951400 Z83.49 repeat TSH. Hyperlipidemia 64708410 E78.5 repeat fasting lipids,con tinue low fat diet and weight loss. Migraine with aura 42424 06 G43.109 doing very well, very occasional migraine. Continue zolmitript an prn. Mild inter mittent asthma 347271650 J45.20 Stable on meds. Menorrhagia 236635115 N9 2.0 Screening for malignant neoplasm of cervix 440751291 Z12.4 Needs infl uenza immunization 399917076 Z23 19 YEARS AND OLDER ONLY Body mass index 25-29 - overweight 731890754 E66.3 Z68.29 WE discussed low calorie diet and pt was recommende d to try to fit in exercise activity at least 3 times weekly. Complete labs were ordered. Health Concerns Section Related Observation LastModified by Organization Detai ls LastModified Time None Recorded Concern Status LastModified by Organization Details LastModified Time None Recorded Advance Directives Directive None Recorded Payers Encounter Date Sequence Insurance Name Policy Number Policy Palacios Covered Member ID Palacios Member ID Guarantor Name 05/21/2023 1 [employer] [facility] (PPO) [id number] Aime Condon [id number] Aemilia R Condon 07/06/2023 1 *SELF PAY* Ae milia R Condon 07/24/2023 1 *SELF PAY* Ae milia R Condon 06/13/2024 1 [facility] [id number] Aemilia R Condon [id number] Aemilia R Condon 08/18/2024 1 [facility] [id number] Aemilia R Condon [id number] Aemilia R Condon Notes Date Note Type Note Provider Name and Address Organization Details Recorded Time 05/21/2023 text/html Generic HPI TemplateReported bypatient.Notes:27 year old female for annual PE. Has no COURSEWARE DEVELOPER care. Periods are heavy once per month. Vaccines: original COVID vaccines, no booster. Pt. had flu vaccine in 2019.BMI is 28.7. Pt. lost 28 lbs since her physical in 2019 but regained 4 lbs.Mild CHRISTI. Score is 3, pt. sees therapist every other week. PHQ is 0.Migraine with aura. Very infrequent headaches since the last year. Pt. is on zolmitriptan PRN.Mild persistent asthma. Pt. is on Flovent BID, montelukast and rescue.NO prior COURSEWARE DEVELOPER katelynn.BMI is 28.7. Reports regular exercise 3 days weekly. Diet: cut out milk and sugar. Milagros Cao PA-C [address] [address], [place], [address], [facility] 05/21/2023 11:43:04 07/06/2023 text/html Back PainReporte d [...] been taking any medication. LAURENCE HIGH MD [address] [address], [place], [address], [facility] 07/06/2023 14:36:24 07/24/2023 text/html 28 y/o female [...] drainage. DEnies fever, chills. 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 Developed conjunctivitis b/l over the past couple of days. 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 PT. has no COURSEWARE DEVELOPER. H/o menorrhagia, now not as bad as it used to be.Vaccines: original COVID vaccines ( not interested in booster). Interested in seasonal flu vac.BMI is 29.2. No regular exercise or dietary restriction. 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 Sees therpaist every 2 weeks. ? of adult ADHD, but has ot been officially tested.Migraine with aura. Very infrequent headaches 90-1 per month) since the last year. Pt. is on zolmitriptan PRN.Mild persistent asthma. Pt. is on Breo Ellipta and albuterol. Sees pulmonary. Milagros Cao PA-C [address] [address], [place], [id number], [facility] 08/18/2024 14:35:11 OBGyn Episode No OBEpisode recorded.
== END 2024-11-13 15:37 | disposition home or self-care (01) ==
LOC: HO.HPSW 15:17
PROVIDERS: PCP Physician Assistant Medical; Visit Provider Nurse Practitioner Family
DX: J45.909 Unspecified asthma, uncomplicated (principal); Z91.09 Other allergy status, other than to drugs and biological substances
CPT/HCPCS: 99214

== ENCOUNTER → 2024-11-13 15:16 | Outpatient (BNVA) | payer OTHER, SELFPAY | PROVIDERS: PCP Physician Assistant Medical; Visit Provider Nurse Practitioner Family ==

== ENCOUNTER 2025-02-10 09:58 | Outpatient (AMB) | payer OTHER, SELFPAY ==
[2025-02-10 10:03] VITALS: BP 94/56; PULSE 66; O2SAT 99; BMI 30.7
--- NOTE | 2025-02-10 10:03 | A.OFFVIS_ITS ---
Vital Signs 02/10/25 10:03 Height 5 ft Weight 157 lb BMI 30.7 BP 94/56 L Blood Pressure Location Lt brachial Position Sitting Pulse 66 Pulse Source Pulse Oximeter Pulse Oximetry (%) 99 Oxygen Delivery Method Room Air Intake Visit Reasons: Asthma Allergies No Known Allergies Allergy (Verified 02/10/25 10:08) HPI HPI Asthma: Details: Wilson is a pleasant 29 year old female, never smoker, with underlying asthma. At baseline, has been well controlled using albuterol MDI infrequently. She rep orts symptoms are mainly triggered by environmental exposures. 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 She is prescribed Breo however using inconsistently. She currently denies any respiratory symptoms. At the last visit she was treated with a zpak for bronchitic symptoms with resolution. She denies any visits to urgent care or hospitalizations related to respiratory distress since the last visit. [facility] Social History (Reviewed 02/10/25 @ 10:08 by Angeles Frias [facility] Patient Tobacco Use Status: Never used Tobacco Review of Systems Const Denies chills, Denies excessive sweating, Denies fever(s), Denies headache(s) and Denies night sweats Eyes Denies dry eyes, Denies irritation and Denies itchy eyes ENT Reports Normal hearing present, Denies headache(s), Denies nasal congestion, Denies nasal discharge, Denies post nasal drip and Denies sore throat Card Denies chest pain, Denies chest pain at rest, Denies chest pain with activity, Denies claudication, Denies leg edema, Denies dyspnea, Denies dyspnea on exertion, Denies orthopnea and Denies paroxysmal nocturnal dyspnea Resp Denies chest congestion, Denies cough, Denies excessive phlegm production, Denies pain on inspiration, Denies pain with cough, Denies dyspnea, Denies dyspnea on exertion, Denies stridor and Denies wheezing Musc Denies myalgias Neuro Reports Normal hearing present and Denies headache(s) Endo Denies excessive sweating Marc/Lymph Denies lymphadenopathy Aller/Immun Denies itchy eyes, Denies seasonal rhinorrhea and Denies wheezing Physical Exam Vital Signs: Last Vital Signs Pulse 66 02/10/25 10:03 BP 94/56 L 02/10/25 10:03 Pulse Ox 99 02/10/25 10:03 Oxygen Delivery Method Room Air 02/10/25 10:03 BMI result Body Mass Index 30.7 Const General: cooperative, healthy appearing, comfortable, no acute distress, well developed and alert Orientation/consciousness: patient oriented x3 Limitations: no limitations HEENT Head: Yes normal to inspection, Yes normocephalic and Yes atraumatic Ears: hearing grossly normal bilaterally and external ears normal Eyes General: appearance normal, both eyes and all related structures Eyelids: Yes eyelids normal Sclerae: sclerae normal EOM: EOMs intact bilaterally Neck Neck: Yes normal visual inspection and Yes no lymphadenopathy Lymphatic: no lymphadenopathy noted Chest Chest palpation & inspection: normal inspection of the chest Resp Effort & Inspection: normal respiratory effort, able to speak in complete sentences, no audible wheezes, no cough, no stridor, not tachypneic, no tripod positioning and no use of accessory muscles Auscultation: clear to auscultation bilaterally Cardio Jugular venous distension: no JVD Rate: regular rate Rhythm: regular rhythm Skin Other: warm, dry General skin exam: no rashes or lesions noted Neuro General: patient oriented x3 Cranial nerves: Yes Normal hearing present Cognition (Neuro): normal cognition Gait exam (Neuro): Normal gait present Extrem General: Yes normal to inspection, Yes capillary refill normal, Yes no clubbing, cyanosis or edema and Yes no pedal edema Psych Appearance: grossly normal and well kempt Speech and movement: Normal speech and movement present and Clear speech present Affect: normal affect Attitude: cooperative Thought process: Normal thought process present Thought content: Normal thought content present Insight: Good insight present (Psych) Judgement: Good judgement present (Psych) Assessment & Plan Assessment & Plan (1) Asthma: Code(s): J45.909 - Unspecified asthma, uncomplicated Category: Medical (2) Environmental allergies: Code(s): Z91.09 - Other allergy status, other than to drugs and biological substances Category: Medical Plan At this time, Wilson reports good control of respiratory symptoms with mild intermittent asthma. Will prescribe AirSupra in place of albuterol MDI for PRN use. All questions were answered and patient is in agreement of plan. Will follow-up in 6-9 months or sooner if needed. Medications: New albuterol-budesonide 90-80 mcg/actuation (Airsupra) 2 inhalations inhalation DAILY PRN 1 ea 3RF shortness of breath Coding Level of Care Code Est Pt Level 4 (76989) Diagnoses Asthma J45.909 Environmental allergies Z91.09
--- OUTSIDE RECORDS SUMMARY | 2025-02-10 11:08 | XMS_ITS | Data Portability ---
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 Plan of Treatment Reminders Order Date Submit Date Provider Last Modified By Organization Details Last Modified Time Details Appointments None record ed. Lab TSH, ultra- sensit trevon, serum 2023 024 SHAHAB [facility] (Centralized Electronic Ordering - All Locations), Patient Can Go To The Location Of Their Choice, [id number] 5 06:13:20 lipid panel, serum 2023 024 SHAHAB [facility] (Centralized Electronic Ordering - All Locations), Patient Can Go To The Location Of Their Choice, [address] 5 06:13:19 CMP, serum or plasma 2023 024 SHAHAB [facility] (Centralized Electronic Ordering - All Locations), Patient Can Go To The Location Of Their Choice, [address] 5 06:13:18 CBC w/ auto diff 2023 024 SHAHAB [facility] (Centralized Electronic Ordering - All Locations), Patient Can Go To The Location Of Their Choice, [id number] 5 06:13:17 rapid flu (A+B) 2023 ania In-Office Order, Internal Use Only DO Not Attach Compendium DO Not Attach Compendium, Do Not Delete/merge, [id number] 4 10:58:51 Referral gyneco logist referr al 2023 024 [email or web address] Not available 4 14:58:40 Procedures None record ed. Surgeries None record ed. Imaging XR, foot, 3 or more view - R. dorsal foot pain, ? stress fractu re vs soft tissue s inflam mation . 2024 025 SHAHAB Not available 5 19:19:19 XR, cervic al spine 2022 023 [email or web address] [facility], [address] [place], [address], 4 15:39:06 XR, thorac ic spine, 2 view 2022 023 [email or web address] [facility], [address] [place], [address], 4 15:39:07 Medication Orders sertra line 50 mg tablet 2023 025 [facility]/Pharmacy #[id number], [address] [place], [address], 5 15:40:59 azithr omycin 250 mg tablet [address] [facility]/Pharmacy #[id number], [address] [place], [address], 5 15:32:05 doxycy hilton hyclat e 100 mg tablet 2022 024 [facility]/Pharmacy #[id number], [address] [place], [address], 4 10:19:42 meloxi cam 15 mg tablet 2022 024 [facility]/Pharmacy #1157, [address] [place], [address], 4 10:20:02 cyclob enzapr ine 5 mg tablet 2022 024 [facility]/Pharmacy #[id number], [address] [place], [address], 10:19:35 Patient TargetsNo targets recorded. Patient Instructions Encounter Date Encounter Id Patient Instructions Last Modified By Organization Details Last Modified Time 07/06/2023 [id number] neck: exercises Not availabl e 07/06/2023 12:26:24 healthy upper back: exercises Not available 07/06/2023 12:26:25 06/13/2024 [id number] pinkeye: care instructions awychowski Not available 06/13/2024 10:58:49 08/18/2024 [id number] high cholesterol: care instructions Not available 08/18/2024 14:34:57 heavy menstrual periods: care instructions Not available 08/18/2024 14:34:57 When You Want to Lose Weight: Care Instructions Not available 08/18/2024 14:34:57 migraine aura without a headache: care instructions Not available 08/18/2024 14:34:57 Reason for Referral Connie Scratcher 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 Referring Physician: Milagros Cao, Internal Medicine, Encounter Date: 08/18/2024 Results Created Date Observation Date Name Description Value Unit Range Abnormal Flag Note LastModifiedBy Organization Detail LastModifiedTime 06/13/2006/13/2024 rapid flu (A+B) Flu A negati ve Not Available In-Office Order Internal Use Only DO Not Attach Compendium DO Not Attach Compendium, Do Not Delete/merge, [id number] 06/13/2024 10:33:19 06/13/20 24 06/13/2024 rapid flu (A+B) Flu B negati ve Not Available In-Office Order Internal Use Only DO Not Attach Compendium DO Not Attach Compendium, Do Not Delete/merge, [id number] 06/13/2024 10:33:19 12/04/19 25 12/03/2024 CBC WITH DIFFE RENTI AL/PL ATELE T WBC 4.2 x10e3 /uL 3.4-10 .8 normal Not Available [facility] ([facility]) [address] [place], [address], 12/04/2024 06:13:17 12/04/19 25 12/03/2024 CBC WITH DIFFE RENTI AL/PL ATELE T RBC 5.07 x10e6 /uL 3.77-5 .28 normal Not Available [facility] ([facility]) [address] [place], [address], 12/04/2024 06:13:17 12/04/19 25 12/03/2024 CBC WITH DIFFE RENTI AL/PL ATELE T hemoglobin 13.5 g/dL 11.1-1 5.9 normal Not Available [facility] ([facility]) [address] [place], [address], 12/04/2024 06:13:17 12/04/19 25 12/03/2024 CBC WITH DIFFE RENTI AL/PL ATELE T hematocrit 41.4 % 34.0-4 6.6 normal Not Available [facility] ([facility]) [address] [place], [address], 12/04/2024 06:13:17 12/04/19 25 12/03/2024 CBC WITH DIFFE RENTI AL/PL ATELE T MCV 82 fL 79-97 normal Not Available [facility] ([facility]) [address] [place], [address], 12/04/2024 06:13:17 12/04/1912/03/2024 CBC WITH DIFFE RENTI AL/PL ATELE T MCH 26.6 pg 26.6-3 3.0 normal Not Available [facility] ([facility]) [address] [place], [address], 12/04/2024 06:13:17 12/04/19 25 12/03/2024 CBC WITH DIFFE RENTI AL/PL ATELE T MCHC 32.6 g/dL 31.5-3 5.7 normal Not Available [facility] ([facility]) [address] [facility], [place], [address], 12/04/2024 06:13:17 12/04/19 25 12/03/2024 CBC WITH DIFFE RENTI AL/PL ATELE T RDW 12.6 % 11.7-1 5.4 Not Available [facility] ([facility]) [address] [facility], [place], [address], 12/04/2024 06:13:17 12/04/19 25 12/03/2024 CBC WITH DIFFE RENTI AL/PL ATELE T platelets 336 x10e3 /uL 150-45 0 normal Not Available [facility] ([facility]) [address] [facility], [place], [address], 12/04/2024 06:13:17 12/04/19 25 12/03/2024 CBC WITH DIFFE RENTI AL/PL ATELE T neutrophils 52 % not estab. normal Not Available [facility] ([facility]) [address] [facility], [place], [address], 12/04/2024 06:13:17 12/04/19 25 12/03/2024 CBC WITH DIFFE RENTI AL/PL ATELE T lymphs 35 % not estab. normal Not Available [facility] ([facility]) [address] [facility], [place], [address], 12/04/2024 06:13:17 12/04/19 25 12/03/2024 CBC WITH DIFFE RENTI AL/PL ATELE T monocytes 10 % not estab. normal Not Available [facility] ([facility]) [address] [facility], [place], [address], 12/04/2024 06:13:17 12/04/19 25 12/03/2024 CBC WITH DIFFE RENTI AL/PL ATELE T eos 2 % not estab. normal Not Available [facility] ([facility]) [address] [facility], [place], [address], 12/04/2024 06:13:17 12/04/1912/03/2024 CBC WITH DIFFE RENTI AL/PL ATELE T basos 1 % not estab. normal Not Available [facility] ([facility]) [address] [facility], [place], [address], 12/04/2024 06:13:17 12/04/1912/03/2024 CBC WITH DIFFE RENTI AL/PL ATELE T immature cells BACTERIOLOGIST FOOD Not Available [facility] ([facility]) [address] [facility], [place], [address], 12/04/2024 06:13:17 12/04/1912/03/2024 CBC WITH DIFFE RENTI AL/PL ATELE T neutrophils (absolute) 2.1 x10e3 /uL 1.4-7. 0 normal Not Available [facility] ([facility]) [address] [place], [address], 12/04/2024 06:13:17 12/04/19 25 12/03/2024 CBC WITH DIFFE RENTI AL/PL ATELE T lymphs (absolute) 1.5 x10e3 /uL 0.7-3. 1 normal Not Available [facility] ([facility]) [address] [place], [address], 12/04/2024 06:13:17 12/04/1912/03/2024 CBC WITH DIFFE RENTI AL/PL ATELE T monocytes(ab solute) 0.4 x10e3 /uL 0.1-0. 9 normal Not Available [facility] ([facility]) [address] [place], [address], 12/04/2024 06:13:17 12/04/19 25 12/03/2024 CBC WITH DIFFE RENTI AL/PL ATELE T eos (absolute) 0.1 x10e3 /uL 0.0-0. 4 normal Not Available [facility] ([facility]) [address] [facility], [place], [address], 12/04/2024 06:13:17 12/04/19 25 12/03/2024 CBC WITH DIFFE RENTI AL/PL ATELE T baso (absolute) 0.1 x10e3 /uL 0.0-0. 2 normal Not Available [facility] ([facility]) [address] [facility], [place], [address], 12/04/2024 06:13:17 12/04/19 25 12/03/2024 CBC WITH DIFFE RENTI AL/PL ATELE T immature granulocytes 0 % not estab. Not Available [facility] ([facility]) [address] [facility], [place], [address], 12/04/2024 06:13:17 12/04/19 25 12/03/2024 CBC WITH DIFFE RENTI AL/PL ATELE T immature grans (abs) 0.0 x10e3 /uL 0.0-0. 1 Not Available [facility] ([facility]) [address] [facility], [place], [address], 12/04/2024 06:13:17 12/04/19 25 12/03/2024 CBC WITH DIFFE RENTI AL/PL ATELE T NRBC BACTERIOLOGIST FOOD Not Available [facility] ([facility]) [address] [facility], [place], [address], 12/04/2024 06:13:17 12/04/19 25 12/03/2024 CBC WITH DIFFE RENTI AL/PL ATELE T hematology comments: BACTERIOLOGIST FOOD Not Available [facility] ([facility]) [address] [facility], [place], [address], 12/04/2024 06:13:17 12/04/19 25 12/03/2024 COMP. METAB OLIC PANEL (14) glucose 80 mg/dL 70-99 normal Not Available [facility] ([facility]) [address] [facility] [place], [address], 12/04/2024 06:13:18 12/04/19 25 12/03/2024 COMP. METAB OLIC PANEL (14) BUN 15 mg/dL 6-20 normal Not Available [facility] ([facility]) [address] [facility] [place], [address], 12/04/2024 06:13:18 12/04/19 25 12/03/2024 COMP. METAB OLIC PANEL (14) creatinine 0.76 mg/dL 0.57-1 .00 normal Not Available [facility] ([facility]) [address] [facility] [place], [address], 12/04/2024 06:13:18 12/04/19 25 12/03/2024 COMP. METAB OLIC PANEL (14) eGFR 110 mL/mi n/1.7 3 >59 normal Not Available [facility] ([facility]) [address] [facility], [place], [address], 12/04/2024 06:13:18 12/04/19 25 12/03/2024 COMP. METAB OLIC PANEL (14) BUN/creatini ne ratio 20 9-23 normal Not Available [facility] ([facility]) [address] [facility] [place], [address], 12/04/2024 06:13:18 12/04/19 25 12/03/2024 COMP. METAB OLIC PANEL (14) sodium 137 mmol/ L 134-14 4 normal Not Available [facility] ([facility]) [address] [facility] [place], [address], 12/04/2024 06:13:18 12/04/19 25 12/03/2024 COMP. METAB OLIC PANEL (14) potassium 4.5 mmol/ L 3.5-5. 2 normal Not Available [facility] ([facility]) [address] [facility] [place], [address], 12/04/2024 06:13:18 12/04/19 25 12/03/2024 COMP. METAB OLIC PANEL (14) chloride 103 mmol/ L 96-106 normal Not Available [facility] ([facility]) [address] [place], [address], 12/04/2024 06:13:18 12/04/19 25 12/03/2024 COMP. METAB OLIC PANEL (14) carbon dioxide, total 22 mmol/ L 20-29 normal Not Available [facility] ([facility]) [address] [place], [address], 12/04/2024 06:13:18 12/04/19 25 12/03/2024 COMP. METAB OLIC PANEL (14) calcium 9.0 mg/dL 8.7-10 .2 normal Not Available [facility] ([facility]) [address] [place], [address], 12/04/2024 06:13:18 12/04/19 25 12/03/2024 COMP. METAB OLIC PANEL (14) protein, total 7.2 g/dL 6.0-8. 5 normal Not Available [facility] ([facility]) [address] [facility] [place], [address], 12/04/2024 06:13:18 12/04/19 25 12/03/2024 COMP. METAB OLIC PANEL (14) albumin 4.6 g/dL 4.0-5. 0 normal Not Available [facility] ([facility]) [address] [facility] [place], [address], 12/04/2024 06:13:18 12/04/19 25 12/03/2024 COMP. METAB OLIC PANEL (14) globulin, total 2.6 g/dL 1.5-4. 5 Not Available [facility] ([facility]) [address] [facility] [place], [address], 12/04/2024 06:13:18 12/04/19 25 12/03/2024 COMP. METAB OLIC PANEL (14) bilirubin, total 0.5 mg/dL 0.0-1. 2 normal Not Available [facility] ([facility]) [address] [place], [address], 12/04/2024 06:13:18 12/04/19 25 12/03/2024 COMP. METAB OLIC PANEL (14) alkaline phosphatase 55 IU/L 44-121 normal Not Available [facility] ([facility]) [address] [place], [address], 12/04/2024 06:13:18 12/04/19 25 12/03/2024 COMP. METAB OLIC PANEL (14) AST (SGOT) 19 IU/L 0-40 normal Not Available [facility] ([facility]) [address] [place], [address], 12/04/2024 06:13:18 12/04/19 25 12/03/2024 COMP. METAB OLIC PANEL (14) ALT (SGPT) 14 IU/L 0-32 normal Not Available [facility] ([facility]) [address] [place], [address], 12/04/2024 06:13:18 12/04/19 25 12/03/2024 LIPID PANEL cholesterol, total 220 mg/dL 100-19 9 above high normal Not Available [facility] ([facility]) [address] [place], [address], 12/04/2024 06:13:19 12/04/19 25 12/03/2024 LIPID PANEL triglyceride s 95 mg/dL 0-149 normal Not Available [facility] ([facility]) [address] [place], [address], 12/04/2024 06:13:19 12/04/19 25 12/03/2024 LIPID PANEL HDL cholesterol 51 mg/dL >39 normal Not Available [facility] ([facility]) [address] [facility], [place], [address], 12/04/2024 06:13:19 12/04/19 25 12/03/2024 LIPID PANEL VLDL cholesterol maria dolores 17 mg/dL 5-40 Not Available [facility] ([facility]) [address] [place], [address], 12/04/2024 06:13:19 12/04/19 25 12/03/2024 LIPID PANEL LDL chol calc ([facility]) 152 mg/dL 0-99 above high normal Not Available [facility] ([facility]) [address] [place], [address], 12/04/2024 06:13:19 12/04/1912/03/2024 LIPID PANEL LDL calc comment: BACTERIOLOGIST FOOD Not Available [facility] ([facility]) [address] [place], [address], 12/04/2024 06:13:19 12/04/1912/03/2024 TSH RFX ON ABNOR MAL TO FREE T4 TSH 2.120 uIU/m L 0.450- 4.500 normal Not Available [facility] ([facility]) [address] [place], [address], 12/04/2024 06:13:19 12/03/1912/02/2024 XR, foot, 3 or more view Foot Min 3 Views Right, 3 views Reason : Pain in right foot COMPAR PRAKASH: None. FINDIN GS: No fractu res or bone lesion s. No arthri tic change s. Normal soft tissue s. IMPRES DEANNE: Normal . WSN: [id number] Orderi ng Physic estefani: Bladimir Cao Dictat ed By: Fransico Lara MD Dictat ed Date/T valorie: 4:16 pm Review ed By: Fransico Lara MD Signed By: Fransico Lara MD Signed Date/T valorie: 4:16 pm Transc ribed By: CSB Transc ribed Date/T valorie: 4:15 pm Patien t Class: Outpat ient [facility] (Outpt Imaging) [address] , [place], [address], 12/04/2024 18:56:10 12/03/19 25 12/02/2024 XR, foot, 3 or more view No observ ation record ed. [facility] [address] [place], [address], 12/04/2024 18:56:10 Result Notes None recorded. Problems Name Problem SNOMED Code Status Onset Date Resolution Date Notes Provider Name and Address Organization Details Recorded Time Acne 53660160 Active 2019 Not Available [facility] 3 10:52:13 Gastroesop hageal reflux disease 481670316 Completed 201907/26/2020 Milagros Cao PA-C [address] [facility] [address], [place], [address] , [facility] 0 11:35:23 Mild intermitte nt asthma 265722616 Active 2019 Not Available [facility] 3 10:52:13 Migraine with aura 3791286 Active 2019 Not Available [facility] 3 10:52:13 Family history of Thyroid disorder 874594788 Active 2021 Not Available [facility] 3 10:52:13 Menorrhagi a 203879088 Active 2021 Not Available [facility] 3 10:52:13 Hyperlipid emia 13609208 Active 2021 Not Available [facility] 3 10:52:13 Generalize d anxiety disorder 20849047 Active 2022 Milagros Cao PA-C [address], [place], [address] , [facility] 3 11:23:22 Body mass index 25-29 - overweight 703019966 Active 2023 Milagros Cao PA-C [address] [facility] [address], [place], [phone] , [facility] 4 14:34:02 Problem Notes None recorded. Procedures Surgical History Date Name Laterality Status Provider Name and Address Organization Details Recorded Time 02/08/2021 Other completed Stacy Prieto MA [facility] 01/12/2022 11:36:58 Imaging Results None recorded. Procedure Notes None recorded. Medical Equipment None Reported. Allergies No known drug allergies Medications Name Sig Start Date Stop Date Status Note LastModified by Organization Details LastModified Time azithromyc in 250 mg tablet TAKE 2 TABLETS BY MOUTH TODAY, THEN TAKE 1 TABLET DAILY FOR 4 DAYS DIRECTED 12/02 completed Not Available Not Available Not Available meloxicam 15 mg tablet TAKE 1 TABLET BY MOUTH EVERY DAY FOR 30 DAYS 06/13 completed Not Available Not Available Not Available zolmitript an 5 mg disintegra ting tablet Take 1 tablet as needed by oral route for 30 days. active Not Available Not Available No t Available triamcinol one acetonide 0.1 % topical cream APPLY A THIN LAYER TOPICALLY TO THE AFFECTED AREA TWICE A DAY 01/12 completed Not Available Not Available Not Available montelukas t 10 mg tablet Take 1 tablet every day by oral route for 30 days. active Not Available Not Available No t Available albuterol sulfate HFA 90 mcg/actuat ion aerosol inhaler Inhale 2 puffs every 4 hours by inhalatio n route for 30 days. active Not Available Not Available No t Available sertraline 50 mg tablet Take 1 tablet every day by oral route for 90 days. 12/02 completed never took it Not Available Not Available Not Available doxycyclin e hyclate 100 mg tablet TAKE 1 TABLET BY MOUTH TWICE A DAY FOR 10 DAYS 06/13 completed Not Available Not Available Not Available amoxicilli n 875 mg-potassi um clavulanat e 125 mg tablet 07/25 completed Not Available Not Available Not Available paroxetine ER 12.5 mg tablet,ext ended release 24 hr TAKE 1 TABLET BY MOUTH DAILY IN THE MORNING active Not Available Not Available No t Available cyclobenza karissa 5 mg tablet TAKE 1 TABLET BY MOUTH EVERY DAY NEEDED FOR 10 DAYS 06/13 completed Not Available Not Available Not Available Flovent Diskus 100 mcg/actuat ion powder for inhalation INHALE 1 PUFF INTO THE LUNGS TWICE A DAY 08/18 completed Not Available Not Available Not Available Breo Ellipta 100 mcg-25 mcg/dose powder for inhalation INHALE 1 PUFF DAILY active Not Available Not Available No t Available Citlali (28) 3 mg-0.02 mg tablet TAKE ONE TABLET BY MOUTH EVERY MORNING 04/02 completed Not Available Not Available Not Available Asmanex HFA 200 mcg/actuat ion aerosol inhaler INHALE 2 PUFFS BY MOUTH EVERY DAY 07/25 completed Not Available Not Available Not Available Asmanex HFA 100 mcg/actuat ion aerosol inhaler INHALE 2 PUFFS TWICE A DAY 01/12 completed Not Available Not Available Not Available Vitals Date Recorded Body height Body mass index (BMI) Body weight Heart rate Oxygen saturation Oxygen saturation in Arterial blood by Pulse oximetry Body temperature Systolic blood pressure Diastolic blood pressure Provider Name and Address Organization Details Last Updated DateTime 5 152.4 cm 29.9 kg/m2 09506.6 3 g 74 /min 100 % 100 % 98.5 [degF] 123 mm[Hg] 87 mm[Hg] Adrianna oro MA [facility] 5 15:41:09 Date Recorded Body height Body mass index (BMI) Body weight Heart rate Oxygen saturation Oxygen saturation in Arterial blood by Pulse oximetry Body temperature Systolic blood pressure Diastolic blood pressure Provider Name and Address Organization Details Last Updated DateTime 4 152.4 cm 29.2 kg/m2 79371.3 6 g 79 /min 99 % 99 % 98.6 [degF] 124 mm[Hg] 84 mm[Hg] Jennifer Partida [facility] 4 10:20:16 Date Recorded Body height Body mass index (BMI) Body weight Oxygen saturation Oxygen saturation in Arterial blood by Pulse oximetry Heart rate Body temperature Systolic blood pressure Diastolic blood pressure Provider Name and Address Organization Details Last Updated DateTime 3 152.4 cm 29.7 kg/m2 73647.4 4 g 100 % 100 % 76 /min 98.2 [degF] 126 mm[Hg] 72 mm[Hg] Kerline Montes De Oca MA [facility] 3 12:14:53 Date Recorded Body height Body mass index (BMI) Body weight Heart rate Oxygen saturation Oxygen saturation in Arterial blood by Pulse oximetry Body temperature Systolic blood pressure Diastolic blood pressure Provider Name and Address Organization Details Last Updated DateTime 3 152.4 cm 29.5 kg/m2 75752.4 5 g 62 /min 100 % 100 % 98.9 [degF] 120 mm[Hg] 81 mm[Hg] Mary Jo Ulloa LPN [facility] 3 11:04:21 Date Recorded Body height Body mass index (BMI) Body weight Heart rate Oxygen saturation Oxygen saturation in Arterial blood by Pulse oximetry Body temperature Systolic blood pressure Diastolic blood pressure Provider Name and Address Organization Details Last Updated DateTime 4 152.4 cm 29.3 kg/m2 10613.8 6 g 73 /min 96 % 96 % 97.6 [degF] 112 mm[Hg] 75 mm[Hg] Amandeep coombs MA [facility] 4 14:03:09 Social History Question Answer Notes LastModified by Organizat ion Details LastModified Time Tobacco Smoking Status Never Smoker Dian nova [facility] 07/26/2020 11:08:26 Is Blood Transfusion Acceptable In An Emergency? Yes Information not available 07/26/2020 What Is Your Level Of Caffeine Consumption? Occasional Information not available 01/12/2022 How Much Tobacco Do You Chew? None Information not available 07/26/2020 What Type Of Diet Are You Following? REGULAR Information not available 07/26/2020 Live Alone Or [...] How Many Children Do You Have? 0 Information not available 01/12/2022 Do You Use Protection During Sex? Always Information not available 07/26/2020 Do You Use Your Seat Belt Or Car Seat Routinely? Yes [email or web address] Information not available 01/12/2022 Seat Belts Used Routinely Yes Information not available 01/12/2022 Are You Sexually Active? Yes Information not available 07/26/2020 Smoke Alarm In Home Yes [email or web address] Information not available 01/12/2022 Do You Have Smoke And Carbon Monoxide Detectors In Your Home? Yes Information not available 01/12/2022 Are You Passively Exposed To Smoke? No Information not available 07/26/2020 How Much Tobacco Do You Smoke? No Information not available 07/26/2020 Do You Use Sunscreen Routinely? No Information not available 07/26/2020 Sex: Unknown Functional Status Question Answer Note LastModified by Organizat ion Details LastModified Time What is your level of alcohol consumption? Occasional Information not available 07/26/2020 Do you or have you ever used smokeless tobacco? Never used smokeless tobacco Information not available 07/26/2020 Are you currently employed? Yes Information not available 07/26/2020 Are you able to walk? YESWOREST [email or web address] Information not available 05/21/2023 Are you able to care for yourself? 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 Never used electronic cigarettes Information not available 01/12/2022 What is your exercise level? Moderate [email or web address] Information not available 01/12/2022 Mental Status None [...] [email or web address] Not available 11:08:11 Father Hypertensive disorder Not available 2021 11:36:46 Paternal Aunt Anxiety [...] 11:08:11 Paternal Uncle Disorder of thyroid gland [email or web address] Not available 2021 11:36:46 Medical History Condition Response Headaches/Migraines Y Asthma Y Acne Y Gynecological HistoryNo gynecological history recorded. Obstetrics History GPAL:G 0 P 0 0 0 0 Immunizations Vaccine Type Date Status Note Provider Nam e and Address Organization Details Recorded Time Tdap 9 completed Birdie Ashley null, [facility] 05/21/2023 10:13:50 varicella 7 completed Birdie Ashley null, [facility] 05/21/2023 10:13:50 varicella 8 completed Birdie Ashley null, [facility] 05/21/2023 10:13:50 MMR 2 completed Birdie Ashley null, [facility] 05/21/2023 10:13:50 MMR 8 completed Birdie Ashley null, [facility] 05/21/2023 10:13:50 DTaP 1 completed Birdie Ashley null, [facility] 05/21/2023 10:13:51 DTaP 9 completed Birdie Ashley null, [facility] 05/21/2023 10:13:51 DTaP 8 completed Birdie Ashley null, [facility] 05/21/2023 10:13:51 DTaP 8 completed Birdie Ashley null, [facility] 05/21/2023 10:13:51 IPV 1 completed Birdie Ashely null, [facility] 05/21/2023 10:13:50 IPV 8 completed Birdie Ashley null, [facility] 05/21/2023 10:13:50 IPV 8 completed Birdie Ashley null, [facility] 05/21/2023 10:13:50 IPV 8 completed Birdie Ashley null, [facility] 05/21/2023 10:13:50 Hib (PRP-T) 9 completed Birdie Ashley null, [facility] 05/21/2023 10:13:51 Hib (PRP-T) 8 completed Birdie Ashley null, [facility] 05/21/2023 10:13:51 Hib (PRP-T) 8 completed Birdie Ashley null, [facility] 05/21/2023 10:13:51 Hib (PRP-T) 8 completed Birdie Ashley null, [facility] 05/21/2023 10:13:51 Hep B, adolescent or pediatric 8 completed Birdie Ashley null, [facility] 05/21/2023 10:13:51 Hep B, adolescent or pediatric 7 completed Birdie Ashley null, [facility] 05/21/2023 10:13:51 Hep B, adolescent or pediatric 7 completed Birdie Ashley null, [facility] 05/21/2023 10:13:51 COVID-19, mRNA, LNP-S, PF, 30 mcg/0.3 mL dose 1 completed Birdie Ashley null, [facility] 05/21/2023 10:13:50 HPV9 9 completed Birdie Ashley null, [facility] 05/21/2023 10:13:50 COVID-19, mRNA, LNP-S, PF, 30 mcg/0.3 mL dose 1 completed Birdie Ashley null, [facility] 05/21/2023 10:13:50 Hep A, ped/adol, 2 dose 1 completed Birdie Ashley null, [facility] 05/21/2023 10:13:51 HPV9 0 completed Birdie Ashley null, [facility] 05/21/2023 10:13:50 Td (adult), 2 Lf tetanus toxoid, preservative free, adsorbed 9 completed Birdie Ashley null, [facility] 05/21/2023 10:13:51 meningococcal MCV4P 7 completed Birdie Ashley null, [facility] 05/21/2023 10:13:51 HPV9 0 completed Birdie Ashley null, [facility] 05/21/2023 10:13:50 Influenza, split virus, trivalent, preservative 3 completed Birdie Ashley null, [facility] 05/21/2023 10:13:50 meningococcal MCV4P 8 completed Birdie Ashley null, [facility] 05/21/2023 10:13:51 DTaP 8 completed Birdie Ashley null, [facility] 05/21/2023 10:13:51 Influenza, split virus, trivalent, preservative 3 completed Birdie Ashley null, [facility] 05/21/2023 10:13:50 Hep A, ped/adol, 2 dose 0 completed Birdie Ashley null, [facility] 05/21/2023 10:13:51 meningococcal B, OMV 8 completed Birdie Ashley null, [facility] 05/21/2023 10:13:50 Tdap 8 completed Birdie Ashley null, [facility] 05/21/2023 10:13:50 Tdap 3 completed Birdie Ashley null, [facility] 05/21/2023 10:13:50 Influenza, split virus, quadrivalent, PF 0 completed ZENON Pitt, [facility] 07/26/2020 11:54:16 Influenza, split virus, quadrivalent, PF 3 completed Lewis Moreno MA null, [facility] 05/21/2023 11:59:52 Influenza, split virus, trivalent, PF 4 completed Milagros Cao PA-C [address] [address], [place], [address], [facility] 08/18/2024 14:34:58 Past Encounters Encounter ID Performer Location Encounter Start Date Encounter Closed Date Diagnosis/Indication Diagnosis SNOMED-CT Code Diagnosis ICD10 Code Diagnosis Note [id number] Jann Ye MD Main Office [address] [address] 07/26/2020 10:43:38 07/26/2020 11:57:41 Adult health examination 729110973 Z00.00 Screening for malignant neoplasm of cervix 391863393 Z12.4 Body mass index 30+ - obesity 145071866 Z68.35 Migraine with aura 63070 06 G43.109 Mild inter mittent asthma 780860796 J45.20 Needs infl uenza immunization 270687838 Z28.3 Weight gain 5274278 R63. 5 r/o thyroid dysfunctio n Fatigue 88475508 R53.83 Hyperlipidemia 44101305 E78.5 Obesity 677052218 E66.9 [id number] Milagros Cao PA-C Main Office [address] [address] 11/04/2020 11:36:56 11/04/2020 12:27:47 Candidiasis of skin 15895552 B37.2 foot mateus. WE will needs to use nystatin cream daily. Mild inter mittent asthma 536257236 J45.20 Start asmanex and montelukas t. F/u in 1 month if needed. Eruption 015542210 R21 non pruritic elbow eruption of unclear etiology. [id number] Stuart Alcantar MD Main Office [address] [address] 01/12/2022 11:35:07 01/12/2022 12:36:46 Adult health examination 521896505 Z00.00 recommend COVID booster. Hyperlipidemia 19392125 E78.5 Family his tory of Thyroid disorder 543176480 Z83.49 Menorrhagia 318138664 N9 2.0 Migraine with aura 09078 06 G43.109 restart rescue meds and keep migraine diary for 6 weeks. F/u to see if preventati ve topamax needs to be restarted. Impacted c erumen of bilateral ears 4739775832 581640 H61.23 disimpacte d with irrigation with hydrogen peroxide and warm water Anxiety 27976530 F41.9 continue therapy. Mild inter mittent asthma 020519519 J45.20 Start Flovent Diskus BID , singulair daily . [id number] Stuart Alcantar MD Main Office [address] [facility] [address] [place] [address] 04/02/2023 13:40:54 04/02/2023 14:37:30 Migraine with aura 0778735 G43.109 restart rescue meds and keep migraine diary for 6 weeks. F/u to see if preventati ve topamax needs to be restarted. Mild inter mittent asthma 840967244 J45.20 Stable on meds. [id number] Milagros Cao PA-C Main Office [address] [facility] [address] [place] [address] 05/21/2023 11:02:54 05/21/2023 11:50:43 Adult health examination 654908248 Z00.00 recommend COVID booster and flu vaccine. Needs infl uenza immunization 273337301 Z23 Generalize d anxiety disorder 33937740 F41.1 mild , respond to therapy. Screening for malignant neoplasm of cervix 884153153 Z12.4 Hyperlipidemia 24766090 E78.5 repeat fasting lipids,con tinue low fat diet and weight loss. Family his tory of Thyroid disorder 515773745 Z83.49 repeat TSH. Migraine with aura 33949 06 G43.109 doing very well, very occasional migraine. Continue zolmitript an prn. Mild inter mittent asthma 040757599 J45.20 Stable on meds. [id number] LAURENCE HIGH MD Main Office [address] [facility] [address] [place] [address] 07/06/2023 12:02:19 07/06/2023 12:32:14 Neck pain 88578241 M54.2 - pt extends from end of [...] (20mg for 5 days) Thoracic back pain 63754 8004 M54.6 [id number] Stuart Alcantar MD Main Office [address] [place] [id number] 07/24/2023 10:43:43 07/24/2023 11:43:20 Abscess of skin and/or subcutaneous tissue 87043816 L02.91 begin antibiotic as directed for 10 days, topical abs as well, change dressing daily. F/u after 7-10 days of treatment if still open or draining. Thoracic back pain 41435 8004 M54.6 pt. is advised to have xray done , continue meloxicam 15 mg daily for another 1-2 weeks. Back stretching . [id number] Jhonny Watkins MD Main Office [address] [place] [address] 06/13/2024 10:00:11 06/13/2024 10:56:43 Fever 795429039 R50.9 Flu and COVID testing negative, making her symptoms more suspicious for atypical respirator y pathogen. WIll cover with azithro. Acute conjunctivitis 537 55032 H10.30 Raises concern for either secondary bacterial infection or atypical respirator y pathogen. Will cover with azithro and reassess if symptoms persist/wo rsen. Atypical pneumonia 38285 6009 J18.9 [id number] Jhonny Watkins MD Main Office [address] [place] [id number] 08/18/2024 13:49:13 08/18/2024 14:36:13 Adult health examination 479015049 Z00.00 Flu vaccine updated. Covid booster advised. [facility] referral was provided. 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 There also might be features of ADD. recommend trial of SSRI, sertraline 50 mg to address both anxiety and possible ADD. F/u 6 weeks. Family his tory of Thyroid disorder 997534188 Z83.49 repeat TSH. Hyperlipidemia 48868917 E78.5 repeat fasting lipids,con tinue low fat diet and weight loss. Migraine with aura 73978 06 G43.109 doing very well, very occasional migraine. Continue zolmitript an prn. Mild inter mittent asthma 895070018 J45.20 Stable on meds. Menorrhagia 081255876 N9 2.0 Screening for malignant neoplasm of cervix 083425511 Z12.4 Needs infl uenza immunization 041810949 Z23 19 YEARS AND OLDER ONLY Body mass index 25-29 - overweight 815129654 E66.3 Z68.29 WE discussed low calorie diet and pt was recommende d to try to fit in exercise activity at least 3 times weekly. Complete labs were ordered. [id number] Gary Dodson MD Main Office [address] [facility] [address] [place] [address] 12/02/2024 15:27:59 12/02/2024 15:49:25 Pain in right foot 0956023221 99496 M79.671 Likely compressio n by new boots, now slowly improving , but due to favoring, referred pain occurred in anterior lower leg.Advise on applying cold pack , icing 15 minute 2-3 times daily, take Aleve BID with food and have xray done to r/o stress fracture. Health Concerns Section Related Observation LastModified by Organization Detai ls LastModified Time None Recorded Concern Status LastModified by Organization Details LastModified Time None Recorded Advance Directives Directive None Recorded Payers Encounter Date Sequence Insurance Name Policy Number Policy [place] Covered Member ID [place] Member ID Guarantor Name 07/06/2023 1 *SELF PAY* Ae milia R Condon 07/24/2023 1 *SELF PAY* Ae milia R Condon 06/13/2024 1 [facility] [id number] Aemilia R Condon [id number] Aemilia R Condon 08/18/2024 1 [facility] [id number] Aemilia R Condon [id number] Aemilia R Condon 12/02/2024 1 [facility] [id number] Aemilia R Condon [id number] Aemilia R Condon Notes Date Note Type Note Provider Name and Address Organization Details Recorded Time 07/06/2023 text/html Back PainReporte d bypatient.Location:[place] [facility] [...] taking any medication. LAURENCE HIGH MD [address] [address], [place], [address], [facility] 07/06/2023 [...] DEnies fever, chills. Milagros Cao PA-C [address] [address], [place], [address], 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 Developed conjunctivitis b/l over the past couple of days. Jhonny Watkins MD [address] [address], [place], [address], 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 PT. has no GR[employer] P[employer]ER. H/o menorrhagia, now not as bad as it used to be.Vaccines: original COVID vaccines ( not interested in booster). Interested in seasonal flu vac.BMI is 29.2. No regular exercise or dietary restriction. 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 Sees therpaist every 2 weeks. ? of adult ADHD, but has ot been officially tested.Migraine with aura. Very infrequent headaches 90-1 per month) since the last year. Pt. is on zolmitriptan PRN.Mild persistent asthma. Pt. is on Breo Ellipta and albuterol. Sees pulmonary. Milagros Cao PA-C [address] [address], [place], [address], [facility] 08/18/2024 14:35:11 12/02/2024 text/html 29 year old fema le c/o 2 week onset of R. dorsal foot pain now radiating on walking up to the anterior mid lower leg. Pt denies fall or any injury. Reports new ankle high boots since October. ? if that was too tight or pressing on top of the foot. DEnies erythema, rash. Milagros Cao PA-C [address] [facility] [address], [place], [address], [facility] 12/02/2024 15:52:58 OBGyn Episode No OBEpisode recorded.
== END 2025-02-10 10:25 | disposition home or self-care (01) ==
LOC: HO.HPSW 09:59
PROVIDERS: PCP Physician Assistant Medical; Visit Provider Nurse Practitioner Family
DX: J45.909 Unspecified asthma, uncomplicated (principal); Z91.09 Other allergy status, other than to drugs and biological substances
CPT/HCPCS: 99214

== ENCOUNTER → 2025-02-10 09:58 | Outpatient (BNVA) | payer OTHER, SELFPAY | PROVIDERS: PCP Physician Assistant Medical; Visit Provider Nurse Practitioner Family ==